=== PATIENT | male | born 2000 | race Caucasian/White ===

== ENCOUNTER 2021-09-10 12:48 | Inpatient (IN) ==
[2021-09-10] MEDS ORDERED: ONDANSETRON INJ 2 MG/ML 2 ML VIAL IV STA (14:02)
[2021-09-10] MEDS ORDERED: SODIUM CHLORIDE 0.9% 1000ML 1,000 ML IV ONE ×2 (14:02→14:53)
[2021-09-10] MEDS ORDERED: MoRPHine SULFATE 4 MG/ML 1 ML CARP\\VIAL IV STA (14:02)
--- NOTE | 2021-09-10 14:06 | Emergency Department Note ---
Impression & Plan Acute pancreatitis, Metabolic acidosis, Acute hyponatremia ED Provider Note NAME: ANN MARTINEZ AGE: 21 SEX: M : 2000 ARRIVES VIA: Walk-In INFORMANT: Patient, ED PROVIDER(S): Zaki Porter DO CHIEF COMPLAINT: Abdominal pain HPI: The patient is a 21-year-old male who presented to emergency department for an evaluation of abdominal pain. He has a history of pancreatitis from elevated triglycerides. He states he recently ran out of his medications and his primary doctor will not refill these medications until he seen in the office. He is not been taking his antihypertensive or his cholesterol medication but he has been taking his insulin. He denies having any fever. He denies having any hematemesis. He states pain is moderate. He does not drink alcohol. The patient has not been seen by his primary care physician recently for the symptoms. The patient states the pain is worsened with eating. ROS: See above HPI for pertinent positives & negatives. A total of 10 systems reviewed and were otherwise negative. PAST MEDICAL HISTORY: See Below PAST SURGICAL HISTORY: See Below FAMILY HISTORY: See Below SOCIAL HISTORY: See Below HOME MEDICATIONS: See Below ALLERGIES: See Below VITALS: See Below PHYSICAL EXAMINATION: GENERAL: Patient is awake alert in no acute distress patient is resting comfortably and showing no signs of anxiety EYES: The conjunctivae are clear. The pupils are round and reactive. EARS, NOSE, MOUTH AND THROAT: The nose is without any evidence of any deformity. NECK: The neck is nontender and supple. RESPIRATORY: Normal respiratory effort is noted there is no evidence of wheezing rhonchi or rales CARDIOVASCULAR: Regular rate and rhythm noted there no murmurs rubs or gallops normal S1 normal S2. GASTROINTESTINAL: The abdomen is soft and nondistended. There is epigastric tenderness to palpation but no guarding rigidity. BACK: No midline tenderness or or step-off noted range of motion in flexion extension as well as rotation no signs of muscle spasm noted MUSCULOSKELETAL/EXTREMITIES: There is no evidence of gross deformity full range of motion is noted in the hips and shoulders. SKIN: There is no obvious evidence of any rash. There are no petechiae, pallor or cyanosis noted. NEUROLOGIC: Patient is awake alert and oriented x3. MEDICAL DECISION MAKING: The patient is a 21-year-old male who presented to emergency department for an evaluation of abdominal pain. The patient has a history of pancreatitis. He states that this felt similar to his previous episodes of pancreatitis. The patient was treated with IV fluids and IV pain medication in the emergency department. He was reevaluated multiple times. I discussed the patient's laboratory and radiographic studies with him. At this time he has no primary care physician and has not been able to take his medications properly. His lipase was elevated compared to baseline. The patient was also found to have significant abnormalities on his basic metabolic panel including a low bicarb. For this reason I discussed this case with the on-call [facility] hospitalist. I am concerned that patient may be in early DKA and given that he has no primary care physician for follow-up he may not do well. Triage Nursing notes reviewed. Prior medical records reviewed Vital Signs: reviewed and remarkable for elevated blood pressure. Differential diagnosis: Etiologies such as appendicitis, diverticulitis, obstruction, inflammatory bowel disease, renal colic, PUD, biliary pathology, pancreatitis, mesenteric ischemia, aortic pathology, infections, genitourinary, UTI, perforated viscus, as well as others were entertained. ER treatment provided: See below Diagnostics interpreted by me: ECG: none Cardiac Monitoring: An order was placed for continuous cardiac monitoring. The monitor shows a rate of 83 bpm with sinus rhythm. Laboratory studies: As stated above and show below. Imaging studies: See below Consultation(s): Dr. Crowley was notified about the patient. They will evaluate the patient in the emergency department. Past Med/Surg History Medical History Dyslipidemia HTN (hypertension) Hypertriglyceridemia Obesity Uncontrolled type 2 diabetes mellitus Social History Smoking Status: Former smoker Tobacco Type: Cigarettes Feels Safe at Home: Yes Allergies Allergies Allergy/AdvReac Type Severity Reaction Status Date / Time erythromycin base Allergy Unknown HAPPENED Verified 09/10/21 15:16 A CHILD liraglutide [From Victoza] Allergy Unknown SEE COMMENT Verified 09/10/21 15:16 Home Meds Home Medications Medication Instructions Recorded Confirmed atorvastatin 40 mg tablet 40 mg PO HS #30 tab 04/23/19 09/10/21 blood sugar diagnostic (OneTouch #10 ea 04/23/19 04/23/19 Verio test strips) cholecalciferol (vitamin D3) 25 1,000 units PO DAILY 04/23/19 09/10/21 mcg (1,000 unit) capsule cyanocobalamin (vitamin B-12) 1,000 mcg PO DAILY 04/23/19 09/10/21 1,000 mcg capsule fenofibrate nanocrystallized 145 145 mg PO HS #30 tab 04/23/19 09/10/21 mg tablet insulin glargine 100 unit/mL (3 15 units SQ BID 04/23/19 09/10/21 mL) subcutaneous pen (Lantus Solostar U-100 Insulin) lancets 33 gauge (OneTouch Delica #100 ea 04/23/19 04/23/19 Lancets) lisinopril 10 mg tablet 10 mg PO DAILY #30 tab 04/23/19 09/10/21 metformin 1,000 mg tablet 1,000 mg PO BID #60 tab 04/23/19 09/10/21 omega-3 fatty acids 1,000 mg 1,000 mg PO TID 09/10/21 09/10/21 capsule Results & Data (ED) Vital Signs Vital Signs - 24 hr 09/10/21 13:00 09/10/21 14:11 09/10/21 15:00 Temperature 36.5 C Temperature Source Temporal Artery Scan Pulse Rate 88 Pulse Rate [Finger] 87 82 Respiratory Rate 20 18 18 Blood Pressure 167/119 H Blood Pressure [Left Arm] 169/109 H 152/98 H Blood Pressure Mean 135 Blood Pressure Mean [Left Arm] 129 116 Pulse Oximetry 96 96 96 Oxygen Delivery Method Room Air Room Air Sepsis Recent Fever Within 48 Hours No Sepsis New/Unexplained Change in Mental Status N/A Sepsis Action Taken by Nursing No Action Required 09/10/21 17:00 Temperature Temperature Source Pulse Rate Pulse Rate [Finger] 83 Respiratory Rate 18 Blood Pressure Blood Pressure [Left Arm] 163/109 H Blood Pressure Mean Blood Pressure Mean [Left Arm] 127 Pulse Oximetry 96 Oxygen Delivery Method Room Air Sepsis Recent Fever Within 48 Hours Sepsis New/Unexplained Change in Mental Status Sepsis Action Taken by Jail Medications Current Medication List: was personally reviewed by me Laboratory Data Attestation: I reviewed the patient's lab results. Result diagrams: 09/10/21 13:30 09/10/21 13:30 Lab Results 09/10/21 09/10/21 09/10/21 Range/Units 13:26 13:30 13:30 WBC 11.65 H (4.8-10.8) K/uL RBC 4.80 (4.7-6.1) M/uL Hgb 13.7 L (14.0-18.0) g/dL Hct 40.7 L (42-52) % MCV 83.8 (80-100) fL MCH 29.6 (25-34) pg MCHC 35.3 (32-36) g/dL RDW Std Deviation 43.0 (36.4-46.3) fL RDW Coeff of Yvon 13.8 (11.5-14.5) % Plt Count 293 (130-400) K/uL MPV 10.6 H (7.4-10.4) fL Immature Gran % (Auto) 0.4 % Neut % (Auto) 64.7 % Lymph % (Auto) 13.7 % [place] % (Auto) 18.9 % Eos % (Auto) 2.0 % Baso % (Auto) 0.3 % Neut # (Auto) 7.54 H (1.4-6.5) K/uL Lymph # (Auto) 1.60 (1.2-3.4) K/uL [place] # (Auto) 2.20 H (0.11-0.59) K/uL Eos # (Auto) 0.23 (0-0.5) K/uL Baso # (Auto) 0.03 (0-0.2) K/uL Immature Gran # (Auto) 0.05 H (0.00-0.02) K/uL RBC Morphology Unremarkable VBG pH (7.36-7.41) VBG pCO2 (38-50) mmHg VBG pO2 mmHg VBG HCO3 mmol/L VBG O2 Saturation % VBG Base Excess mEq/L Barometric Pressure mm/Hg Sodium 123 L (136-145) mmol/L Potassium 3.6 (3.5-5.1) mmol/L Chloride 89 L (98-107) mmol/L Carbon Dioxide 18 L (21-32) mmol/L Anion Gap 16 H (3-11) BUN 12 (6-23) mg/dl Creatinine 0.71 (0.6-1.4) mg/dl Est Cr Clr Drug Dosing 244.3 ml/min Est GFR ( Amer) > 150.0 ml/min Est GFR (Non-Af Amer) 133.2 ml/min BUN/Creatinine Ratio 16.9 (10-20) Glucose 225 H (70-99(Fasting)) mg/dl Calcium 10.4 H (8.5-10.1) mg/dl Total Bilirubin 0.6 (0.2-1.0) mg/dl AST 27 (13-39) U/L ALT 30 (7-52) U/L Alkaline Phosphatase 69 (34-104) U/L Lactate Dehydrogenase (86-244) U/L Total Protein 9.0 H (6.0-8.3) gm/dl Albumin 4.9 (3.4-5.0) gm/dl Globulin 4.1 H (2.5-4.0) gm/dl Albumin/Globulin Ratio 1.2 (0.9-2) Lipase 114 H (11-82) U/L Urine Color Yellow Urine Appearance Cloudy A (Clear) Urine pH 5.0 (4.5-7.5) Ur Specific [place] 1.035 H (1.000-1.030) Urine Protein 3+ H (Negative) Urine Glucose (UA) 3+ H (Negative) Urine Ketones Trace H (Negative) Urine Blood Trace H (Negative) Urine Nitrite Negative (Negative) Urine Bilirubin Negative (Negative) Urine Urobilinogen Negative (Negative) Ur Leukocyte Esterase Negative (Negative) Urine WBC (Auto) >30 H (0-5) /hpf Urine RBC (Auto) 0-4 (0-4) /hpf U Hyaline Cast (Auto) >30 H (0-5) /lpf U Epithel Cells (Auto) >30 H (0-5) /lpf Urine Bacteria (Auto) Negative (Negative) Ur Renal Epithelial Cell Not Reportable Granular Casts 1-5 H (0) /lpf SARS-CoV-2, RNA, NAAT (NEGATIVE) 09/10/21 09/10/21 09/10/21 Range/Units 13:30 15:17 17:00 WBC (4.8-10.8) K/uL RBC (4.7-6.1) M/uL Hgb (14.0-18.0) g/dL Hct (42-52) % MCV (80-100) fL MCH (25-34) pg MCHC (32-36) g/dL RDW Std Deviation (36.4-46.3) fL RDW Coeff of Yvon (11.5-14.5) % Plt Count (130-400) K/uL MPV (7.4-10.4) fL Immature Gran % (Auto) % Neut % (Auto) % Lymph % (Auto) % [place] % (Auto) % Eos % (Auto) % Baso % (Auto) % Neut # (Auto) (1.4-6.5) K/uL Lymph # (Auto) (1.2-3.4) K/uL [place] # (Auto) (0.11-0.59) K/uL Eos # (Auto) (0-0.5) K/uL Baso # (Auto) (0-0.2) K/uL Immature Gran # (Auto) (0.00-0.02) K/uL RBC Morphology VBG pH 7.36 (7.36-7.41) VBG pCO2 46 (38-50) mmHg VBG pO2 38 mmHg VBG HCO3 25 mmol/L VBG O2 Saturation 72.6 % VBG Base Excess -0.4 mEq/L Barometric Pressure 730.6 mm/Hg Sodium (136-145) mmol/L Potassium (3.5-5.1) mmol/L Chloride (98-107) mmol/L Carbon Dioxide (21-32) mmol/L Anion Gap (3-11) BUN (6-23) mg/dl Creatinine (0.6-1.4) mg/dl Est Cr Clr Drug Dosing ml/min Est GFR ( Amer) ml/min Est GFR (Non-Af Amer) ml/min BUN/Creatinine Ratio (10-20) Glucose (70-99(Fasting)) mg/dl Calcium (8.5-10.1) mg/dl Total Bilirubin (0.2-1.0) mg/dl AST (13-39) U/L ALT (7-52) U/L Alkaline Phosphatase (34-104) U/L Lactate Dehydrogenase 124 (86-244) U/L Total Protein (6.0-8.3) gm/dl Albumin (3.4-5.0) gm/dl Globulin (2.5-4.0) gm/dl Albumin/Globulin Ratio (0.9-2) Lipase (11-82) U/L Urine Color Urine Appearance (Clear) Urine pH (4.5-7.5) Ur Specific [place] (1.000-1.030) Urine Protein (Negative) Urine Glucose (UA) (Negative) Urine Ketones (Negative) Urine Blood (Negative) Urine Nitrite (Negative) Urine Bilirubin (Negative) Urine Urobilinogen (Negative) Ur Leukocyte Esterase (Negative) Urine WBC (Auto) (0-5) /hpf Urine RBC (Auto) (0-4) /hpf U Hyaline Cast (Auto) (0-5) /lpf U Epithel Cells (Auto) (0-5) /lpf Urine Bacteria (Auto) (Negative) Ur Renal Epithelial Cell Granular Casts (0) /lpf SARS-CoV-2, RNA, NAAT NEGATIVE (NEGATIVE) Administered Medications Discontinued Medications Sodium Chloride (Nss 1000ml) 1,000 mls @ 999 mls/hr IV .Q1H1M ONE Stop: 09/10/21 15:02 Last Infusion: 09/10/21 15:05 Dose: 0 mls/hr Documented by: [id number] Admin: 09/10/21 14:09 Dose: 999 mls/hr Documented by: [id number] Sodium Chloride (Nss 1000ml) 1,000 mls @ 999 mls/hr IV .Q1H1M ONE Stop: 09/10/21 15:53 Last Infusion: 09/10/21 16:54 Dose: 0 mls/hr Documented by: [id number] Admin: 09/10/21 15:02 Dose: 999 mls/hr Documented by: [id number] Famotidine (Pepcid 20mg Iv Push) 20 mg in 5 mls @ 2.5 mls/min IV NOW STA Stop: 09/10/21 16:52 Last Admin: 09/10/21 17:12 Dose: 2.5 mls/min Documented by: [id number] Ioversol (Optiray 320 100ml) 95 ml IV ONCE ONE Stop: 09/10/21 16:02 Last Admin: 09/10/21 16:05 Dose: 95 ml Documented by: [id number] Morphine Sulfate (Morphine Sulfate 4 Mg/Ml 1 Ml Carp\Vial) 4 mg IV NOW STA Stop: 09/10/21 14:03 Last Admin: 09/10/21 14:09 Dose: 4 mg Documented by: [id number] Ondansetron HCl (Ondansetron Inj 2 Mg/Ml 2 Ml Vial) 4 mg IV NOW STA Stop: 09/10/21 14:03 Last Admin: 09/10/21 14:09 Dose: 4 mg Documented by: [id number] Imaging Data Radiologist's Impression: Abdomen/Pelvis CT 09/10/21 15:38 CT OF THE ABDOMEN AND PELVIS WITH CONTRAST CLINICAL HISTORY: Upper abdominal pain. COMPARISON STUDY: None. TECHNIQUE: Following IV administration of 94 mL of Optiray, axial images of the abdomen and pelvis were obtained from the lung bases to the proximal femurs. Images were reviewed in the axial, sagittal, and coronal planes. IV contrast was administered without complication. Automated exposure control was utilized for the study. A dose lowering technique was utilized adhering to the principles of ALARA. CT DOSE: 1306.89 mGy.cm FINDINGS: Lung bases are unremarkable. No pneumatosis, free air or portal venous gas is present. Bilateral gynecomastia is noted. The liver is enlarged, measuring 27 cm in craniocaudal dimension. Hepatic steatosis is present. There is mild splenomegaly. No hepatic lesions are present. The adrenal glands and right kidney are normal. Note is made of a 6 mm left renal calculus. There are no ureteral calculi and there is no hydronephrosis. There is mild peripancreatic infiltration which extends into the mesentery. There is no evidence for stewart creatic necrosis. No peripancreatic fluid collection is present. There is no pericholecystic infiltration. The appendix is normal. Caliber and wall thickness of small and large bowel are normal. Colonic diverticulosis is noted without evidence for acute diverticulitis. No acute fracture or suspicious lesion is identified within the visualized skeletal structures. IMPRESSION: 1. Peripancreatic stranding suggestive of acute pancreatitis. No evidence for pancreatic necrosis. No peripancreatic fluid collections. 2. Hepatic steatosis and hepatomegaly. Mild splenomegaly. 3. 6 mm left renal calculus. No ureteral calculi. No hydronephrosis. ACT 112: Negative or not required by law. Electronically signed by: Harvinder Rodrigues M.D. 09/10/2021 4:45 PM Discharge Plan Visit Data Chief Complaint: Abdominal Pain Stated Complaint: CHEST PAIN, UPPER ABD PAIN ED Provider: Zaki Porter Discharge Problem: Acute pancreatitis, Metabolic acidosis, Acute hyponatremia Patient Disposition: Being Evaluated by Hospitalist Forms Stand Alone Forms: My [facility] Prescriptions Prescriptions: No Action atorvastatin 40 mg tablet 40 mg PO HS Qty: 30 RF: 0 fenofibrate nanocrystallized 145 mg tablet 145 mg PO HS Qty: 30 RF: 0 Lantus Solostar U-100 Insulin 100 unit/mL (3 mL) insulin pen 15 units SQ BID RF: 0 lisinopril 10 mg tablet 10 mg PO DAILY Qty: 30 RF: 0 metformin 1,000 mg tablet 1,000 mg PO BID Qty: 60 RF: 0 (DME) lancets [OneTouch Delica Lancets] 33 gauge misc See Dose Instructions .ROUTE .MEDSUPPLY Qty: 100 RF: 0 (DME) OneTouch Verio test strips strip See Dose Instructions .ROUTE .MEDSUPPLY Qty: 10 RF: 0 cyanocobalamin (vitamin B-12) 1,000 mcg capsule 1,000 mcg PO DAILY RF: 0 cholecalciferol (vitamin D3) 1,000 unit capsule 1,000 units PO DAILY RF: 0 omega-3 fatty acids 1,000 mg Capsule 1,000 mg PO TID RF: 0 Referrals Referrals: Unknown,Unknown [] -
[2021-09-10 14:30] LABS: Hematocrit (blood only) 40.7 % (42-52); Hemoglobin 13.7 g/dL (14.0-18.0); Mean Corpuscular Hemoglobin 29.6 pg (25-34); Mean Corpuscular Hgb Conc 35.3 g/dL (32-36); Mean Corpuscular Volume 83.8 fL (80-100); Mean Platelet Volume 10.6 fL (7.4-10.4); Platelet Count 293 K/uL (130-400); RDW Coefficient of Variation 13.8 % (11.5-14.5); White Blood Count 11.65 K/uL (4.8-10.8)
[2021-09-10 14:34] LABS: Basophils # (auto) 0.03 K/uL (0-0.2); Basophils % (auto) 0.3 %; Eosinophils # (auto) 0.23 K/uL (0-0.5); Immature Granulocytes # (auto) 0.05 K/uL (0.00-0.02); Immature Granulocytes % (auto) 0.4 %; Lymphocytes % (auto) 13.7 %; Monocytes % (auto) 18.9 %; Neutrophils # (auto) 7.54 K/uL (1.4-6.5); Neutrophils % (auto) 64.7 %; RBC Morphology Unremarkable
[2021-09-10 14:42] LABS: Anion Gap 16 (3-11); Blood Urea Nitrogen 12 mg/dl (6-23); Carbon Dioxide 18 mmol/L (21-32); Chloride 89 mmol/L (98-107); Potassium 3.6 mmol/L (3.5-5.1); Sodium 123 mmol/L (136-145)
[2021-09-10 15:03] LABS: Appearance Urine Cloudy (Clear); Bacteria Urine Automated Negative (Negative); Bilirubin Urine Negative (Negative); Blood Urine Trace (Negative); Color Urine Yellow; Epithelial Cell Urine Auto >30 /lpf (0-5); Glucose Urine UA 3+ (Negative); Ketones Urine Trace (Negative); Leukocyte Esterase Urine Negative (Negative); Nitrite Urine Negative (Negative); Protein Urine 3+ (Negative); RBC Urine Automated 0-4 /hpf (0-4); Specific Gravity Urine 1.035 (1.000-1.030); Urobilinogen Urine Negative (Negative); WBC Urine Automated >30 /hpf (0-5)
[2021-09-10 15:04] LABS: Cast Urine Automated >30 /lpf (0-5)
[2021-09-10 15:19] LABS: Alanine Aminotransferase 30 U/L (7-52); Albumin Globulin Ratio 1.2 (0.9-2); Albumin Level 4.9 gm/dl (3.4-5.0); Alkaline Phosphatase 69 U/L (34-104); BUN Creatinine Ratio 16.9 (10-20); Bilirubin,Total 0.6 mg/dl (0.2-1.0); Calcium 10.4 mg/dl (8.5-10.1); Creatinine Clr Calc Pharmacy 244.3 ml/min; Est GFR (African American) > 150.0 ml/min; Est GFR (Non-African American) 133.2 ml/min; Globulin 4.1 gm/dl (2.5-4.0); Glucose 225 mg/dl (70-99(Fasting)); Lipase 114 U/L (11-82)
[2021-09-10 15:27] LABS: Aspartate Aminotransferase 27 U/L (13-39)
[2021-09-10 15:29] LABS: Base Excess VBG -0.4 mEq/L; Oxygen Saturation VBG 72.6 %; pH VBG 7.36 (7.36-7.41)
[2021-09-10] MEDS ORDERED: OPTIRAY 320 100ml IV ONE (16:01)
--- NOTE | 2021-09-10 16:47 | CT Scan Report ---
CT OF THE ABDOMEN AND PELVIS WITH CONTRAST CLINICAL HISTORY: Upper abdominal pain. COMPARISON STUDY: None. TECHNIQUE: Following IV administration of 94 mL of Optiray, axial images of the abdomen and pelvis we re obtained from the lung bases to the proximal femurs. Images were reviewed in the axial, sagittal, and coronal planes. IV contrast was administered without complication. Automated exposure control wa s utilized for the study. A dose lowering technique was utilized adhering to the principles of ALARA . CT DOSE: 1306.89 mGy.cm FINDINGS: Lung bases are unremarkable. No pneumatosis, free air or portal venous gas is present. Bila teral gynecomastia is noted. The liver is enlarged, measuring 27 cm in craniocaudal dimension. Hepati c steatosis is present. There is mild splenomegaly. No hepatic lesions are present. The adrenal gland s and right kidney are normal. Note is made of a 6 mm left renal calculus. There are no ureteral calc rickey and there is no hydronephrosis. There is mild peripancreatic infiltration which extends into the mesentery. There is no evidence for pancreatic necrosis. No peripancreatic fluid collection is presen t. There is no pericholecystic infiltration. The appendix is normal. Caliber and wall thickness of sm all and large bowel are normal. Colonic diverticulosis is noted without evidence for acute diverticul itis. No acute fracture or suspicious lesion is identified within the visualized skeletal structures. IMPRESSION: 1. Peripancreatic stranding suggestive of acute pancreatitis. No evidence for pancreatic necrosis. No peripancreatic fluid collections. 2. Hepatic steatosis and hepatomegaly. Mild splenomegaly. 3. 6 mm left renal calculus. No ureteral calculi. No hydronephrosis. ACT 112: Negative or not required by law. Electronically signed by: Harvinder Rodrigues M.D. 09/10/2021 4:45 PM
[2021-09-10] MEDS ORDERED: FAMOTIDINE 20MG IV PUSH 20 MG/5 ML SYR IV STA (16:51)
--- NOTE | 2021-09-10 17:12 | History & Physical Report ---
Date of Service September 10, 2021 Assessment & Plan (1) Pancreatitis: Plan: -Triglycerides 7898. -Patient has a history of hypertriglyceridemia pancreatitis. Denies alcohol use, abdominal trauma, recent changes to medications or addition of supplements. CT showed no gallstones. Patient has been without his cholesterol medication for about 3 weeks now. History of familial hypertriglyceridemia . Lipase elevated at 114. CT of the abdomen revealed peripancreatic stranding suggestive of acute pancreatitis. No evidence of pancreatitis necrosis. No peripancreatic fluid collections. -Will start insulin drip 0.1 mg/kg/hour, (= 13.4 units/h). -Presenting K+ 3.6, patient received 40 mEq PO KCl in anticipation of K depletion 2/2 insulin drip, will continue to replace as needed. Following BMPs every 4. -D5 w/ LR at 150 cc/hour. -Low-fat/heart healthy clear liquids as tolerated by patient. -Check triglycerides Q12h, BMP Q4h. -Lactate unable to be obtained currently due to lipemia. Patient is hypertensive, otherwise vital signs stable, within normal limits. (2) Hypertriglyceridemia: Plan: -See above. -Continue atorvastatin 40 mg and fenofibrate 145 mg daily. (3) Uncontrolled type 2 diabetes mellitus: Plan: -Glucose elevated today at 225. -On Metformin at home. will hold during hospitalization. -Currently on insulin drip due to hypertriglyceridemia pancreatitis, also receiving D5 with LR at 150 cc/hr. -Check sugars every hour. -HbA1c in a.m. (4) Hyponatremia: Plan: -Na+ 123 in the setting of hypertriglyceridemia and hyperglycemia. This is likely pseudohyponatremia. No symptoms of hyponatremia, dizziness, weakness, confusion. -Uosm 309. -Following BMP every 4. (5) HTN (hypertension): Plan: -Blood pressure elevated at 163/109, likely due to pain as well as uncontrolled hypertension. -No evidence of KIM, continue lisinopril 10 mg p.o. daily. (6) DVT prophylaxis: Plan: -SCDs ordered. -Lovenox SQ. History of Present Illness Chief Complaint: abdominal pain x2 days Primary Care Provider: NO PCP Patient is a 21-year-old male with a past medical history of poorly controlled type 2 diabetes, hypertension, hypertriglyceridemia, hospitalized several times with pancreatitis, and obesity who presents with abdominal pain. Patient states yesterday morning, he woke up feeling generally fatigued and developed epigastric abdominal pain with radiation up to his chest. He tried managing at home with 800 mg of ibuprofen which he states took away the pain somewhat for about 8 hours, however it came back and he was unable to control it. Denies f ever/chills, palpitations, shortness of breath, cough, headache, nausea, vomiting, diarrhea, constipation, melena, hematochezia, urinary changes. He states he is very good at staying hydrated, he has been tolerating p.o. intake both food and liquids at home very well. Patient states he was previously hospitalized beginning of the month in [place] for hypertriglyceridemia induced pancreatitis. He was discharged and encouraged to follow-up with PCP, he had scheduled an appointment for this past Saturday, however patient missed this appointment. He has been taking insulin and BP meds as scheduled but has been without his cholesterol medication for about 3 weeks. 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 He states he has been trying to eat healthier, avoid sodium and fatty foods. Attempting to increase his protein intake. Allergies Allergy/AdvReac Type Severity Reaction Status Date / Time erythromycin base Allergy Unknown HAPPENED Verified 09/10/21 15:16 A CHILD liraglutide [From Victoza] Allergy Unknown SEE COMMENT Verified 09/10/21 15:16 Home Medications Medication Instructions Recorded Confirmed Type atorvastatin 40 mg tablet 40 mg PO HS #30 tab 04/23/19 09/10/21 [facility]19 04/23/19 History Verio test strips) cholecalciferol (vitamin D3) 25 1,000 units PO DAILY 04/23/19 09/10/21 History mcg (1,000 unit) capsule cyanocobalamin (vitamin B-12) 1,000 mcg PO DAILY 04/23/19 09/10/21 History 1,000 mcg capsule fenofibrate nanocrystallized 145 145 mg PO HS #30 tab 04/23/19 09/10/21 History mg tablet insulin glargine 100 unit/mL (3 15 units SQ BID 04/23/19 09/10/21 History mL) subcutaneous pen (Lantus Solostar U-100 Insulin) lancets 33 [facility] 04/23/19 04/23/19 History Lancets) lisinopril 10 mg tablet 10 mg PO DAILY #30 tab 04/23/19 09/10/21 History metformin 1,000 mg tablet 1,000 mg PO BID #60 tab 04/23/19 09/10/21 History omega-3 fatty acids 1,000 mg 1,000 mg PO TID 09/10/21 09/10/21 History capsule blood sugar diagnostic (OneTouch #100 ea 09/11/21 Rx Verio test strips) lancets 33 gauge (OneTouch Delica #100 ea 09/11/21 Rx Lancets) pen needle, diabetic 32 gauge x #100 ea 09/11/21 Rx 5/32" Past Med/Surg History Medical History Dyslipidemia HTN (hypertension) Hypertriglyceridemia Obesity Uncontrolled type 2 diabetes mellitus Social History Smoking Status: Former smoker Tobacco Type: Cigarettes Second Hand Exposure: No; Do You Dip or Chew Tobacco: No; Tobacco Cessation Education Requested by Patient: No Hx Alcohol Use: No Hx Substance Use: No Preferred Language: German Communication Ability: Effective Vamp Stitcher Required: No Beliefs That Will Affect Care: None Current Living Situation: Spouse and Family Other Information That Helps Us Care for You: No Feels Safe at Home: Yes Safety Concerns: Feels Safe At This Time Assistive Devices: None Review of Systems Review of Systems: Constitutional: Reports generalized weakness for 1 day; no fever, sweats or chills Eyes: No diplopia, no worsening or blurred vision ENT: normal hearing, no trouble swallowing Respiratory: No cough, sputum, dyspnea at rest or on exertion Cardiovascular: No chest pain, tightness or palpitations Abdomen: Epigastric abdominal pain with radiation to his chest; no nausea, vomiting, diarrhea or constipation Musculoskeletal: No joint pain, calf pain, swelling Neurologic: No weakness, numbness/tingling, or balance problems Psychiatric: No anxiety or depression Skin: No rash or itch Physical Exam Physical Exam: General: awake, alert, no apparent distress Head: Normocephalic, atraumatic ENT: PERRL, EOMI, no pharyngeal exudate, mucous membranes moist Chest: Clear to auscultation, on room air, no adventitious breath sounds Cardiac: Regular rate and rhythm, no murmur, no JVD, normal peripheral pulses, good capillary refill Abdominal: NABS x 4 quadrants, soft, nontender to palpation, no rebound, guarding or tenderness; negative Sky sign, negative Ramsey Schumacher sign Extremities: Normal inspection, no peripheral edema or erythema, calfs nontender to palpation Psych: Normal mood and affect Neuro: AAO x 3, strength intact bilaterally and rated 5/5, no motor deficits, speech is clear, no peripheral sensory deficits Skin: no rash or erythema Results & Data Results & Data ([facility]) Vital Signs (Past 12 Hours) Vital Signs Temp Pulse Pulse Resp BP BP Pulse Ox 09/10/21 15:00 82 18 152/98 H 96 09/10/21 14:11 87 18 169/109 H 96 09/10/21 13:00 36.5 C 88 20 167/119 H 96 Laboratory Results Abnormal lab results 09/10/21 09/10/21 09/10/21 Range/Units 13:26 13:30 13:30 WBC 11.65 H (4.8-10.8) K/uL Hgb 13.7 L (14.0-18.0) g/dL Hct 40.7 L (42-52) % MPV 10.6 H (7.4-10.4) fL Neut # (Auto) 7.54 H (1.4-6.5) K/uL [place]ard # (Auto) 2.20 H (0.11-0.59) K/uL Immature Gran # (Auto) 0.05 H (0.00-0.02) K/uL Sodium 123 L (136-145) mmol/L Chloride 89 L (98-107) mmol/L Carbon Dioxide 18 L (21-32) mmol/L Anion Gap 16 H (3-11) Glucose 225 H (70-99(Fasting)) mg/dl Calcium 10.4 H (8.5-10.1) mg/dl Total Protein 9.0 H (6.0-8.3) gm/dl Globulin 4.1 H (2.5-4.0) gm/dl Lipase 114 H (11-82) U/L Urine Appearance Cloudy A (Clear) Ur Specific [place] 1.035 H (1.000-1.030) Urine Protein 3+ H (Negative) Urine Glucose (UA) 3+ H (Negative) Urine Ketones Trace H (Negative) Urine Blood Trace H (Negative) Urine WBC (Auto) >30 H (0-5) /hpf U Hyaline Cast (Auto) >30 H (0-5) /lpf U Epithel Cells (Auto) >30 H (0-5) /lpf Granular Casts 1-5 H (0) /lpf Diagnostic Findings Abdomen/Pelvis CT 09/10/21 15:38 CT OF THE ABDOMEN AND PELVIS WITH CONTRAST CLINICAL HISTORY: Upper abdominal pain. COMPARISON STUDY: None. TECHNIQUE: Following IV administration of 94 mL of Optiray, axial images of the abdomen and pelvis were obtained from the lung bases to the proximal femurs. Images were reviewed in the axial, sagittal, and coronal planes. IV contrast was administered without complication. Automated exposure control was utilized for the study. A dose lowering technique was utilized adhering to the principles of ALARA. CT DOSE: 1306.89 mGy.cm FINDINGS: Lung bases are unremarkable. No pneumatosis, free air or portal venous gas is present. Bilateral gynecomastia is noted. The liver is enlarged, measuring 27 cm in craniocaudal dimension. Hepatic steatosis is present. There is mild splenomegaly. No hepatic lesions are present. The adrenal glands and right kidney are normal. Note is made of a 6 mm left renal calculus. There are no ureteral calculi and there is no hydronephrosis. There is mild peripancreatic infiltration which extends into the mesentery. There is no evidence for pancreatic necrosis. No peripancreatic fluid collection is present. There is no pericholecystic infiltration. The appendix is normal. Caliber and wall thickness of small and large bowel are normal. Colonic diverticulosis is noted without e vidence for acute diverticulitis. No acute fracture or suspicious lesion is identified within the visualized skeletal structures. IMPRESSION: 1. Peripancreatic stranding suggestive of acute pancreatitis. No evidence for pancreatic necrosis. No peripancreatic fluid collections. 2. Hepatic steatosis and hepatomegaly. Mild splenomegaly. 3. 6 mm left renal calculus. No ureteral calculi. No hydronephrosis. Medications Administered Home Medications Medication Instructions Recorded Confirmed Type atorvastatin 40 mg tablet 40 mg PO HS #30 tab 04/23/19 09/10/21 History blood sugar diagnostic (OneTouch #10 ea 04/23/19 04/23/19 History Verio test strips) cholecalciferol (vitamin D3) 25 1,000 units PO DAILY 04/23/19 09/10/21 History mcg (1,000 unit) capsule cyanocobalamin (vitamin B-12) 1,000 mcg PO DAILY 04/23/19 09/10/21 History 1,000 mcg capsule fenofibrate nanocrystallized 145 145 mg PO HS #30 tab 04/23/19 09/10/21 History mg tablet insulin glargine 100 unit/mL (3 15 units SQ BID 04/23/19 09/10/21 History mL) subcutaneous pen (Lantus Solostar U-100 Insulin) lancets 33 gauge ([facility] Delica #100 ea 04/23/19 04/23/19 History Lancets) lisinopril 10 mg tablet 10 mg PO DAILY #30 tab 04/23/19 09/10/21 History metformin 1,000 mg tablet 1,000 mg PO BID #60 tab 04/23/19 09/10/21 History omega-3 fatty acids 1,000 mg 1,000 mg PO TID 09/10/21 09/10/21 History capsule Current Medications Lactated Ringer's (Lr) 1,000 mls @ 999 mls/hr IV .Q1H1M ONE Stop: 09/10/21 18:26 Last Admin: 09/10/21 17:30 Dose: 999 mls/hr Documented by: Code Status & VTE Plan Code Status full code Supervising Physician Co-Signing Physician Notes I personally saw and examined the patient. I verified all barrera points and agree with Jaz Owens PA-C with the following exceptions and/or additions: 21 year old male with significant history of recurrent hypertriglyceridemia pancreatitis off his atorvastatin and fenofibrate for the past month admission for epigastric pain with lipase 114 U/L however significant CT imaging findings of pancreatitis. Current severity of pain 6/10, improved on pain medication given in the ER. O/E Well-appearing, alert and orientated x3, epigastric pain without rebound or guarding, bowel sounds normal. No CVA tenderness. A/P Acute pancreatitis - etiology = triglycerides 7898 mg/dL. Initial aggressive rehydration with 3L bolus of IV fluids. Advance diet as pain/nausea allow. Given he is able to tolerate oral intake at this time we will continue his atorvastatin and fenofibrate. Insulin 0.1 units/kg/h started. Maintain glucose levels 150-200 using D10W initially at rates of 75ml/hr. continue additional fluid resuscitation with LR @ 75 ml/hr. BMP every 6 hourly. Triglycerides every 12 hourly. Uncontrolled type 2 diabetes - taking approximately 40 units total per day. Will be getting total of 312 units/day while on insulin drip. Consult processing spec. HbA1c with a.m. labs. PG Care Time/CCT Total # of Minutes Spent Total Time Spent with Patient: Total time spent is greater than 50% in coordination of care (as documented) at patient's floor/unit and/or counseling patient: Coding Level of Care Code 66112 Initial Inpt Care Lvl 3 Diagnoses Uncontrolled type 2 diabetes mellitus E11.65 Glycemic state: with hyperglycemia HTN (hypertension) I10 Hypertension type: unspecified Hypertriglyceridemia E78.1 Pancreatitis K85.80 Acute pancreatitis complication: no infection or necrosis Chronicity: acute Pancreatitis type: other Hyponatremia E87.1 DVT prophylaxis Z29.9 (1) Uncontrolled type 2 diabetes mellitus Glycemic state: with hyperglycemia Qualified Code(s): E11.65 - Type 2 diabete s mellitus with hyperglycemia (2) Pancreatitis Acute pancreatitis complication: no infection or necrosis Chronicity: acute Pancreatitis type: other Qualified Code(s): K85.80 - Other acute pancreatitis without necrosis or infection (3) HTN (hypertension) Hypertension type: unspecified Qualified Code(s): I10 - Essential (primary) hypertension
[2021-09-10] MEDS ORDERED: LACTATED RINGER'S 1,000 ML IV ONE (17:26)
[2021-09-10] MEDS ORDERED: STAT IV STA (18:05)
[2021-09-10] MEDS ORDERED: POTASSIUM CHLORIDE CRTAB 20 MEQ TABCR PO STA (18:06)
[2021-09-10] MEDS ORDERED: D5W AND LACTATED RINGERS 1,000 ML IV SCH (18:15)
--- NOTE | 2021-09-10 18:26 | XRay Report ---
XR chest 1V portable CLINICAL HISTORY: assess for pleural effusions with pancreatitis COMPARISON STUDY: No previous studies for comparison. FINDINGS: Lung volumes are mildly diminished. There is no pneumothorax or pleural effusion. Cardiac s ilhouette is mildly enlarged, likely technical on this portable AP exam. No airspace opacities are pr esent. IMPRESSION: No acute cardiopulmonary findings. ACT 112: Negative or not required by law. Electronically signed by: Harvinder Rodrigues M.D. 09/10/2021 6:24 PM
[2021-09-10] MEDS ORDERED: HYDROmorphone INJ 1 MG/ML SYRINGE IV STA (18:37)
[2021-09-10] MEDS ORDERED: GLUCAGON FOR INJ 1 MG VIAL SQ PRN (19:04)
[2021-09-10] MEDS ORDERED: GLUCOSE 10 TABS/TUBE PO PRN (19:04)
[2021-09-10] MEDS ORDERED: DEXTROSE 50% 50 ML SYRINGE IV PRN (19:04)
[2021-09-10] MEDS ORDERED: GLUCOSE 40% GEL 15 GM TUBE PO PRN (19:04)
[2021-09-10] MEDS ORDERED: CARBOHYDRATES FOR HYPOGLYCEMIA PO PRN (19:04)
[2021-09-10 19:11] LABS: Anion Gap 13 (3-11); BUN Creatinine Ratio 16.1 (10-20); Blood Urea Nitrogen 9 mg/dl (6-23); Calcium 9.1 mg/dl (8.5-10.1); Carbon Dioxide 20 mmol/L (21-32); Chloride 104 mmol/L (98-107); Creatinine Clr Calc Pharmacy 309.8 ml/min; Est GFR (African American) > 150.0 ml/min; Est GFR (Non-African American) 146.8 ml/min; Glucose 175 mg/dl (70-99(Fasting)); Potassium 3.9 mmol/L (3.5-5.1); Sodium 137 mmol/L (136-145)
[2021-09-10] MEDS ORDERED: POLYETHYLENE (MIRALAX) 17 GM PACK PO PRN (19:18)
[2021-09-10] MEDS ORDERED: ACETAMINOPHEN 325 MG TAB PO PRN (19:18)
[2021-09-10] MEDS: POTASSIUM CHLORIDE / WTR 10 MEQ/100 ML PLCT IV SCH ×2 (19:38→22:15)
[2021-09-10] MEDS ORDERED: ENOXAPARIN INJ 40 MG/0.4 ML SYR SQ SCH (21:00)
[2021-09-10] MEDS ORDERED: FENOFIBRATE NANOCRYSTALLIZED 145 MG TABLET PO SCH (21:00)
[2021-09-10] MEDS ORDERED: ATORVASTATIN 40 MG TAB PO SCH (21:00)
[2021-09-10] MEDS: INSULIN REGULAR 250 UNITS in SODIUM CHLORIDE 0.9% 247.5 ML IV SCH (21:09)
[2021-09-10] MEDS: LACTATED RINGER'S 1,000 ML IV SCH (21:10)
[2021-09-10] MEDS: DEXTROSE 10% 1,000 ML IV SCH (21:10)
[2021-09-10] MEDS: HYDROmorphone INJ 1 MG/ML SYRINGE IV PRN (21:40)
[2021-09-10] MEDS: FENOFIBRATE NANOCRYSTALLIZED 145 MG TABLET PO SCH (22:17)
[2021-09-10] MEDS: ATORVASTATIN 40 MG TAB PO SCH (22:17)
[2021-09-10 23:48] LABS: Anion Gap 9 (3-11); BUN Creatinine Ratio 12.9 (10-20); Blood Urea Nitrogen 8 mg/dl (6-23); Calcium 8.9 mg/dl (8.5-10.1); Carbon Dioxide 24 mmol/L (21-32); Chloride 103 mmol/L (98-107); Creatinine Clr Calc Pharmacy 282.3 ml/min; Est GFR (African American) > 150.0 ml/min; Est GFR (Non-African American) 140.8 ml/min; Glucose 185 mg/dl (70-99(Fasting)); Potassium 3.9 mmol/L (3.5-5.1); Sodium 136 mmol/L (136-145)
[2021-09-11] MEDS: ONDANSETRON INJ 2 MG/ML 2 ML VIAL IV PRN ×2 (01:23→16:26)
[2021-09-11] MEDS: HYDROmorphone INJ 1 MG/ML SYRINGE IV PRN ×4 (01:23→20:10)
[2021-09-11 04:07] LABS: Anion Gap 10 (3-11); BUN Creatinine Ratio 11.6 (10-20); Blood Urea Nitrogen 8 mg/dl (6-23); Calcium 8.6 mg/dl (8.5-10.1); Carbon Dioxide 24 mmol/L (21-32); Chloride 101 mmol/L (98-107); Creatinine Clr Calc Pharmacy 253.7 ml/min; Est GFR (African American) > 150.0 ml/min; Est GFR (Non-African American) 134.8 ml/min; Glucose 200 mg/dl (70-99(Fasting)); Potassium 3.8 mmol/L (3.5-5.1); Sodium 135 mmol/L (136-145)
[2021-09-11] MEDS: POTASSIUM CHLORIDE / WTR 10 MEQ/100 ML PLCT IV SCH ×4 (06:22→11:16)
[2021-09-11 07:40] LABS: Estimated Average Glucose 283 mg/dl; Hemoglobin A1C 11.5 % (4.5-5.6)
[2021-09-11 07:44] LABS: Anion Gap 8 (3-11); BUN Creatinine Ratio 8.2 (10-20); Blood Urea Nitrogen 6 mg/dl (6-23); Calcium 8.8 mg/dl (8.5-10.1); Carbon Dioxide 27 mmol/L (21-32); Chloride 100 mmol/L (98-107); Creatinine Clr Calc Pharmacy 239.8 ml/min; Est GFR (African American) > 150.0 ml/min; Est GFR (Non-African American) 131.7 ml/min; Glucose 217 mg/dl (70-99(Fasting)); Sodium 135 mmol/L (136-145)
[2021-09-11] MEDS ORDERED: lisinopril 10 MG TAB PO SCH (09:00)
[2021-09-11] MEDS: LACTATED RINGER'S 1,000 ML IV SCH ×2 (11:17→23:08)
[2021-09-11] MEDS: DEXTROSE 10% 1,000 ML IV SCH ×2 (11:17→23:06)
[2021-09-11 12:51] LABS: Hemoglobin 13.7 g/dL (14.0-18.0); Mean Corpuscular Hemoglobin 29.4 pg (25-34); Mean Corpuscular Hgb Conc 35.1 g/dL (32-36); Mean Corpuscular Volume 83.7 fL (80-100); Mean Platelet Volume 10.3 fL (7.4-10.4); Platelet Count 245 K/uL (130-400); RDW Coefficient of Variation 13.9 % (11.5-14.5); RDW Standard Deviation 42.1 fL (36.4-46.3); Red Blood Count 4.66 M/uL (4.7-6.1); White Blood Count 15.27 K/uL (4.8-10.8)
[2021-09-11 12:53] LABS: ALC (manual) 1.86 K/uL (1.2-3.4); ANC (manual) 11.96 K/uL (1.4-6.5); Eosinophils # (manual) 0.26 K/uL (0-0.5); Eosinophils % (manual) 1.7 %; Lymphocytes # (manual) 1.86 K/uL (1.2-3.4); Lymphocytes % (manual) 12.2 %; Monocytes # (manual) 1.19 K/uL (0.11-0.59); Monocytes % (manual) 7.8 %; Neutrophils # (manual) 11.96 K/uL (1.4-6.5); Neutrophils % (manual) 78.3 %
[2021-09-11 12:59] LABS: Anion Gap 11 (3-11); BUN Creatinine Ratio 7.5 (10-20); Blood Urea Nitrogen 5 mg/dl (6-23); Calcium 8.6 mg/dl (8.5-10.1); Carbon Dioxide 22 mmol/L (21-32); Chloride 100 mmol/L (98-107); Creatinine Clr Calc Pharmacy 261.2 ml/min; Est GFR (African American) > 150.0 ml/min; Est GFR (Non-African American) 136.4 ml/min; Glucose 182 mg/dl (70-99(Fasting)); Potassium 3.9 mmol/L (3.5-5.1); Sodium 133 mmol/L (136-145)
[2021-09-11] MEDS: INSULIN REGULAR 250 UNITS in SODIUM CHLORIDE 0.9% 247.5 ML IV SCH (15:49)
[2021-09-11] MEDS ORDERED: POTASSIUM CHLORIDE CRTAB 20 MEQ TABCR PO STA ×2 (16:02→19:42)
--- NOTE | 2021-09-11 16:35 | Hospitalist Progress Note ---
Date of Service September 11, 2021 Assessment & Plan (1) Pancreatitis: Plan: Secondary to hypertriglyceridemia - Triglycerides 7898 on admission, improving with intravenous insulin -Patient has a history of hypertriglyceridemia pancreatitis. Denies alcohol use, abdominal trauma, recent changes to medications or addition of supplements. CT showed no gallstones. Patient has been without his cholesterol medication for about 3 weeks now. History of familial hypertriglyceridemia . Lipase elevated at 114. CT of the abdomen revealed peripancreatic stranding suggestive of acute pancreatitis. No evidence of pancreatitis necrosis. No peripancreatic fluid collections. -continue insulin drip 0.1 mg/kg/hour, (= 13.4 units/h). -Replace potassium as needed. -Continue LR @ 75ml/hr + D10W @ 75ml/hr - appears to be keeping glucose 150-200 with this rate. Will likely need to stop LR tomorrow as patient approximately 6L positive at this time. -Low-fat/heart healthy as tolerated by patient. -Check triglycerides Q12h, BMP Q6h. (2) Asymptomatic bacteriuria: Plan: Staph growing in urine. Suspect contamination as no symptoms from this but prudent to take blood cultures to make sure not bacteremic with hyperglycemia and increased WBC. No indication to start antibiotics at current time however if he was to spike a fever despite this possibly also being related to his pancre atitis would empirically treat for staph bacteremia. (3) Hypertriglyceridemia: Plan: -See above. -Continue atorvastatin 40 mg and fenofibrate 145 mg daily. (4) Uncontrolled type 2 diabetes mellitus: Plan: -Glucose elevated on admission 225. -On Metformin at home. will hold during hospitalization. -Currently on insulin drip due to hypertriglyceridemia pancreatitis. -BSG q2h. -HbA1c 11.5 (5) Hyponatremia: Plan: Resolved - suspect somewhat pseudohyponatremic secondary to hypertriglyceridemia (6) HTN (hypertension): Plan: Hold further lisinopril due to low normal BP - already had dose this morning Plan: VTE prophylaxis - SCDs, low risk given age despite higher risk condition with pancreatitis, he is mobile therefore will avoid Lovenox injections Diet - low fat, stop if worsening pain or nausea and will reduce back to clears Disposition - continued admission on PCU due to worsening inflammation as noted by increased WBC and tachycardia despite abdominal pain improving Admission and Anticipated Discharge Date Admission Date: September 10, 2021 Subjective Epigastric pain improved. Severity 4/10. Ok eating small amounts but pain returns if he eats too much. Appetite good. BM normal. No nausea or vomiting. No fever or chills. Review of Systems Review of Systems: All systems reviewed & are unremarkable except as noted in HPI & below Physical Exam Constitutional: well developed, well nourished and + obese; no acute distress Eyes: + anicteric sclerae; normal pupil size Neck: trachea midline, no thyromegaly Respiratory: normal respiratory effort, lungs clear to auscultation Cardiovascular: Rate/Rhythm: regular rhythm and + tachycardic Heart Sounds: no murmur Gastrointestinal (Abdomen): Percussion/Palpation: + abdomen tender (epigastric) and abdomen soft; no guarding and abdomen not rigid Skin: no rashes, warm and dry Neurologic: moves all extremities and awake; not confused Psychiatric: A+Ox3, euthymic affect Results & Data Results & Data ([facility]) Vital Signs (Past 12 Hours) Vital Signs Temp Pulse Pulse Resp BP Pulse Ox 09/11/21 15:31 36.3 C L 111 H 22 100/53 L 95 09/11/21 11:09 37.0 C 120 H 20 118/57 L 94 09/11/21 09:31 107 H 09/11/21 07:13 36.4 C L 112 H 20 133/76 99 PG Care Time/CCT Total # of Minutes Spent Total Time Spent with Patient: Total time spent is greater than 50% in coordination of care (as documented) at patient's floor/unit and/or counseling patient: Coding Level of Care Code 27541 Subseq Hosp Care Lvl 3 Diagnoses Pancreatitis K85.80 Acute pancreatitis complication: no infection or necrosis Chronicity: acute Pancreatitis type: other Hypertriglyceridemia E78.1 Uncontrolled type 2 diabetes mellitus E11.65 Glycemic state: with hyperglycemia Hyponatremia E87.1 HTN (hypertension) I10 Hypertension type: unspecified Asymptomatic bacteriuria R82.71 (1) Uncontrolled type 2 diabetes mellitus Glycemic state: with hyperglycemia Qualified Code(s): E11.65 - Type 2 diabetes mellitus with hyperglycemia (2) Pancreatitis Acute pancreatitis complication: no infection or necrosis Chronicity: acute Pancreatitis type: other Qualified Code(s): K85.80 - Other acute pancreatitis without necrosis or infection (3) HTN (hypertension) Hypertension type: unspecified Qualified Code(s): I10 - Essential (primary) hypertension
[2021-09-11 17:59] LABS: BUN Creatinine Ratio 5.4 (10-20); Calcium 8.8 mg/dl (8.5-10.1); Creatinine Clr Calc Pharmacy 157.7 ml/min; Est GFR (African American) 108.7 ml/min; Est GFR (Non-African American) 93.8 ml/min; Potassium 3.8 mmol/L (3.5-5.1)
[2021-09-11] MEDS: FENOFIBRATE NANOCRYSTALLIZED 145 MG TABLET PO SCH (20:54)
[2021-09-11] MEDS: ATORVASTATIN 40 MG TAB PO SCH (20:54)
[2021-09-12 01:18] LABS: Calcium 8.5 mg/dl (8.5-10.1)
[2021-09-12 02:13] LABS: BUN Creatinine Ratio 8.5 (10-20); Creatinine Clr Calc Pharmacy 165.1 ml/min; Est GFR (African American) 114.9 ml/min; Est GFR (Non-African American) 99.1 ml/min
[2021-09-12 04:05] LABS: Basophils # (auto) 0.02 K/uL (0-0.2); Basophils % (auto) 0.2 %; Eosinophils # (auto) 0.17 K/uL (0-0.5); Eosinophils % (auto) 1.7 %; Hematocrit (blood only) 34.5 % (42-52); Hemoglobin 12.5 g/dL (14.0-18.0); Immature Granulocytes # (auto) 0.04 K/uL (0.00-0.02); Immature Granulocytes % (auto) 0.4 %; Lymphocytes # (auto) 1.73 K/uL (1.2-3.4); Lymphocytes % (auto) 17.7 %; Mean Corpuscular Hemoglobin 30.7 pg (25-34); Mean Corpuscular Hgb Conc 36.2 g/dL (32-36); Mean Corpuscular Volume 84.8 fL (80-100); Mean Platelet Volume 10.6 fL (7.4-10.4); Monocytes # (auto) 1.09 K/uL (0.11-0.59); Monocytes % (auto) 11.2 %; Neutrophils # (auto) 6.72 K/uL (1.4-6.5); Neutrophils % (auto) 68.8 %; Platelet Count 177 K/uL (130-400); RDW Coefficient of Variation 14.1 % (11.5-14.5); RDW Standard Deviation 43.6 fL (36.4-46.3); Red Blood Count 4.07 M/uL (4.7-6.1); White Blood Count 9.77 K/uL (4.8-10.8)
[2021-09-12] MEDS: POTASSIUM CHLORIDE / WTR 10 MEQ/100 ML PLCT IV SCH ×2 (07:50→08:50)
[2021-09-12] MEDS ORDERED: oxyCODONE HCL IR 5 MG TAB (IMMEDIATE RELEASE) PO PRN (09:28)
[2021-09-12 10:27] LABS: Albumin Globulin Ratio 0.9 (0.9-2); Albumin Level 3.5 gm/dl (3.4-5.0); BUN Creatinine Ratio 8.8 (10-20); Bilirubin,Total 0.8 mg/dl (0.2-1.0); Calcium 8.5 mg/dl (8.5-10.1); Creatinine Clr Calc Pharmacy 220.6 ml/min; Est GFR (Non-African American) 126.8 ml/min; Globulin 3.7 gm/dl (2.5-4.0); Potassium 4.3 mmol/L (3.5-5.1); Total Protein 7.2 gm/dl (6.0-8.3)
[2021-09-12] MEDS ORDERED: POTASSIUM CHLORIDE CRTAB 20 MEQ TABCR PO STA (10:38)
--- NOTE | 2021-09-12 10:51 | Hospitalist Progress Note ---
Date of Service September 12, 2021 Assessment & Plan (1) Pancreatitis: Plan: Secondary to hypertriglyceridemia - Triglycerides 7898 on admission, improving with intravenous insulin -Patient has a history of hypertriglyceridemia pancreatitis. Denies alcohol use, abdominal trauma, recent changes to medications or addition of supplements. CT showed no gallstones. Patient has been without his cholesterol medication for about 3 weeks now. History of familial hypertriglyceridemia . Lipase elevated at 114. CT of the abdomen revealed peripancreatic stranding suggestive of acute pancreatitis. No evidence of pancreatitis necrosis. No peripancreatic fluid collections. -continue insulin drip 0.1 mg/kg/hour, (= 13.4 units/h), can discontinue once triglycerides < 500. -Replace potassium as needed. -D10W @ 75ml/hr - can stop LR at this time. -Low-fat/heart healthy as tolerated by patient. -Check triglycerides Q12h, BMP Q6h. (2) Asymptomatic bacteriuria: Plan: Staph growing in urine. Suspect contamination as no symptoms from this Blood culture negative @ 24 hours. Repeat UA pending No indication to start antibiotics at current time however if he was to spike a fever despite this possibly also being related to his pancreatitis would empirically treat for staph bacteremia. (3) Hypertriglyceridemia: Plan: -See above. -Continue atorvastatin 40 mg and fenofibrate 145 mg daily. (4) Uncontrolled type 2 diabetes mellitus: Plan: -Glucose elevated on admission 225. -On Metformin at home. will hold during hospitalization. -Currently on insulin drip due to hypertriglyceridemia pancreatitis. -BSG q2h. -HbA1c 11.5 (5) Hyponatremia: Plan: Resolved - suspect somewhat pseudohyponatremic secondary to hypertriglyceridemia (6) HTN (hypertension): Plan: Holding lisinopril due to relative hypotension, suspect he takes this more for proteinuria. Plan: VTE prophylaxis - SCDs, low risk given age despite higher risk condition with pancreatitis, he is mobile therefore will avoid Lovenox injections Diet - low fat, stop if worsening pain or nausea and will reduce back to clears Disposition - continued admission on PCU due to need for insulin IV Admission and Anticipated Discharge Date Admission Date: September 10, 2021 Subjective Patient feels ready to be discharged at this time. No significant pain after eating. Occasional nausea. No opiates since yesterday. Triglycerides down to 3259. Review of Systems Review of Systems: All systems reviewed & are unremarkable except as noted in Subjective Physical Exam Constitutional: well developed, well nourished and + obese; no acute distress Eyes: + anicteric sclerae; normal pupil size Neck: trachea midline, no thyromegaly Respiratory: normal respiratory effort, lungs clear to auscultation Cardiovascular: Rate/Rhythm: regular rate and regular rhythm Heart Sounds: no murmur Gastrointestinal (Abdomen): Percussion/Palpation: abdomen soft; abdomen nontender, no guarding and abdomen not rigid Skin: no rashes, warm and dry Neurologic: moves all extremities and awake; not confused Psychiatric: A+Ox3, euthymic affect Results & Data Results & Data ([facility]) Vital Signs (Past 12 Hours) Vital Signs Temp Pulse Pulse Resp BP BP Pulse Ox 09/12/21 08:04 37.1 C 88 16 133/84 95 09/12/21 03:08 37.6 C H 105 H 18 119/67 95 09/11/21 23:52 98 H 09/11/21 23:23 37 C 105 H 18 116/56 L 96 PG Care Time/CCT Total # of Minutes Spent Total Time Spent with Patient: Total time spent is greater than 50% in coordination of care (as documented) at patient's floor/unit and/or counseling patient: Coding Level of Care Code 70206 Subseq Hosp Care Lvl 3 Diagnoses Pancreatitis K85.80 Acute pancreatitis complication: no infection or necrosis Chronicity: acute Pancreatitis type: other Asymptomatic bacteriuria R82.71 Hypertriglyceridemia E78.1 Uncontrolled type 2 diabetes mellitus E11.65 Glycemic state: with hyperglycemia Hyponatremia E87.1 HTN (hypertension) I10 Hypertension type: unspecified (1) Uncontrolled type 2 diabetes mellitus Glycemic state: with hyperglycemia Qualified Code(s): E11.65 - Type 2 diabetes mellitus with hyperglycemia (2) Pancreatitis Acute pancreatitis complication: no infection or necrosis Chronicity: acute Pancreatitis type: other Qualified Code(s): K85.80 - Other acute pancreatitis without necrosis or infection (3) HTN (hypertension) Hypertension type: unspecified Qualified Code(s): I10 - Essential (primary) hypertension
[2021-09-12] MEDS: INSULIN REGULAR 250 UNITS in SODIUM CHLORIDE 0.9% 247.5 ML IV SCH (11:03)
[2021-09-12] MEDS: DEXTROSE 10% 1,000 ML IV SCH (12:46)
[2021-09-12 13:22] LABS: Anion Gap 11 (3-11); BUN Creatinine Ratio 7.2 (10-20); Blood Urea Nitrogen 6 mg/dl (6-23); Calcium 8.6 mg/dl (8.5-10.1); Carbon Dioxide 23 mmol/L (21-32); Chloride 101 mmol/L (98-107); Creatinine Clr Calc Pharmacy 212.6 ml/min; Est GFR (African American) 144.8 ml/min; Est GFR (Non-African American) 124.9 ml/min; Glucose 171 mg/dl (70-99(Fasting)); Sodium 135 mmol/L (136-145)
[2021-09-12 16:36] LABS: Appearance Urine Clear (Clear); Bacteria Urine Automated Negative (Negative); Bilirubin Urine Negative (Negative); Blood Urine Negative (Negative); Cast Urine Automated 0 /lpf (0-5); Color Urine Yellow; Glucose Urine UA Negative (Negative); Ketones Urine Negative (Negative); Leukocyte Esterase Urine Trace (Negative); Nitrite Urine Negative (Negative); Protein Urine Negative (Negative); RBC Urine Automated 0-4 /hpf (0-4); Specific Gravity Urine 1.007 (1.000-1.030); Urobilinogen Urine Negative (Negative); pH Urine 5.5 (4.5-7.5)
[2021-09-12] MEDS: ONDANSETRON INJ 2 MG/ML 2 ML VIAL IV PRN (17:06)
[2021-09-12 19:17] LABS: Potassium 4.1 mmol/L (3.5-5.1)
[2021-09-12 19:18] LABS: BUN Creatinine Ratio 8.7 (10-20); Calcium 9.5 mg/dl (8.5-10.1); Creatinine Clr Calc Pharmacy 191.8 ml/min; Est GFR (African American) 136.4 ml/min; Est GFR (Non-African American) 117.6 ml/min
[2021-09-12] MEDS: FENOFIBRATE NANOCRYSTALLIZED 145 MG TABLET PO SCH (20:43)
[2021-09-12] MEDS: ATORVASTATIN 40 MG TAB PO SCH (20:43)
[2021-09-12] MEDS ORDERED: Nursing to Pharmacy Communication SCH ×2 (23:00)
[2021-09-13 01:10] LABS: BUN Creatinine Ratio 9.1 (10-20); Calcium 9.1 mg/dl (8.5-10.1); Creatinine Clr Calc Pharmacy 200.5 ml/min; Est GFR (African American) 141.3 ml/min; Est GFR (Non-African American) 121.9 ml/min; Potassium 3.9 mmol/L (3.5-5.1)
[2021-09-13] MEDS: DEXTROSE 10% 1,000 ML IV SCH ×2 (03:53→15:54)
[2021-09-13] MEDS ORDERED: POTASSIUM CHLORIDE / WTR 10 MEQ/100 ML PLCT IV ONE (04:26)
[2021-09-13] MEDS ORDERED: POTASSIUM CHLORIDE CRTAB 20 MEQ TABCR PO STA ×2 (04:31→15:23)
[2021-09-13 06:41] LABS: Basophils # (auto) 0.02 K/uL (0-0.2); Basophils % (auto) 0.3 %; Eosinophils # (auto) 0.26 K/uL (0-0.5); Hematocrit (blood only) 33.3 % (42-52); Immature Granulocytes # (auto) 0.03 K/uL (0.00-0.02); Immature Granulocytes % (auto) 0.5 %; Lymphocytes # (auto) 1.77 K/uL (1.2-3.4); Lymphocytes % (auto) 27.3 %; Mean Corpuscular Hemoglobin 28.7 pg (25-34); Mean Corpuscular Volume 86.9 fL (80-100); Mean Platelet Volume 11.1 fL (7.4-10.4); Monocytes # (auto) 0.72 K/uL (0.11-0.59); Monocytes % (auto) 11.1 %; Neutrophils # (auto) 3.68 K/uL (1.4-6.5); Neutrophils % (auto) 56.8 %; Platelet Count 192 K/uL (130-400); RDW Coefficient of Variation 14.5 % (11.5-14.5); RDW Standard Deviation 45.8 fL (36.4-46.3); Red Blood Count 3.83 M/uL (4.7-6.1); White Blood Count 6.48 K/uL (4.8-10.8)
[2021-09-13 07:30] LABS: Alanine Aminotransferase 28 U/L (7-52); Albumin Level 3.4 gm/dl (3.4-5.0); Alkaline Phosphatase 38 U/L (34-104); BUN Creatinine Ratio 10.1 (10-20); Bilirubin,Total 0.6 mg/dl (0.2-1.0); Blood Urea Nitrogen 7 mg/dl (6-23); Calcium 8.6 mg/dl (8.5-10.1); Carbon Dioxide 25 mmol/L (21-32); Chloride 100 mmol/L (98-107); Creatinine Clr Calc Pharmacy 255.6 ml/min; Est GFR (African American) > 150.0 ml/min; Est GFR (Non-African American) 134.8 ml/min; Globulin 3.3 gm/dl (2.5-4.0); Glucose 175 mg/dl (70-99(Fasting)); Total Protein 6.7 gm/dl (6.0-8.3)
[2021-09-13 08:12] LABS: Triglycerides 1943 mg/dl (0-150)
--- NOTE | 2021-09-13 10:16 | Hospitalist Progress Note ---
Date of Service September 13, 2021 Assessment & Plan (1) Pancreatitis: Plan: Secondary to hypertriglyceridemia - Triglycerides 7898 on admission, improving with intravenous insulin -Patient has a history of hypertriglyceridemia pancreatitis. Denies alcohol use, abdominal trauma, recent changes to medications or addition of supplements. CT showed no gallstones. Patient has been without his cholesterol medication for about 3 weeks now. History of familial hypertriglyceridemia . Lipase elevated at 114. CT of the abdomen revealed peripancreatic stranding suggestive of acute pancreatitis. No evidence of pancreatitis necrosis. No peripancreatic fluid collections. -continue insulin drip 0.1 mg/kg/hour, (= 13.4 units/h), can discontinue once triglycerides < 500. Decrease temporarily last night due to glucose <180. Given relatively consistent glucose levels with this using D10W recommend early adjusting if persistent glucose greater than 250 or less than 140. -Replace potassium as needed. -D10W @ 75ml/hr. -Low-fat/heart healthy as tolerated by patient. -Check triglycerides Q12h, BMP Q6h. (2) Asymptomatic bacteriuria: Plan: Staph growing in urine. Suspect contamination as no symptoms from this Blood culture negative @ 48 hours. Repeat UA without bacteriuria No indication to start antibiotics. (3) Hypertriglyceridemia: Plan: -See above. -Continue atorvastatin 40 mg and fenofibrate 145 mg daily. (4) Uncontrolled type 2 diabetes mellitus: Plan: -Glucose elevated on admission 225. -On Metformin at home. will hold during hospitalization. -Currently on insulin drip due to hypertriglyceridemia pancreatitis. -BSG q2h. -HbA1c 11.5 -Appreciate education by prosthodontist/educator. (5) Hyponatremia: Plan: Resolved - suspect somewhat pseudohyponatremic secondary to hypertriglyceridemia (6) HTN (hypertension): Plan: Holding lisinopril due to relative hypotension, suspect he takes this more for proteinuria. Plan: VTE prophylaxis - SCDs, low risk given age despite higher risk condition with pancreatitis, he is mobile therefore will avoid Lovenox injections Diet - low fat, stop if worsening pain or nausea and will reduce back to clears Disposition - continued admission on PCU due to need for insulin IV Admission and Anticipated Discharge Date Admission Date: September 10, 2021 Subjective Abdominal pain resolved. No nausea or vomiting. Appetite at baseline. Having bowel movements. Review of Systems Review of Systems: All systems reviewed & are unremarkable except as noted in Subjective Physical Exam Constitutional: well developed, well nourished and + obese; no acute distress Eyes: + anicteric sclerae; normal pupil size Neck: trachea midline, no thyromegaly Respiratory: normal respiratory effort, lungs clear to auscultation Cardiovascular: Rate/Rhythm: regular rate and regular rhythm Heart Sounds: no murmur Gastrointestinal (Abdomen): Percussion/Palpation: abdomen soft; abdomen nontender, no guarding and abdomen not rigid Skin: no rashes, warm and dry Neurologic: moves all extremities and awake; not confused Psychiatric: A+Ox3, euthymic affect Results & Data Results & Data ([facility]) Vital Signs (Past 12 Hours) Vital Signs Temp Pulse Pulse Resp BP Pulse Ox 09/13/21 08:38 90 09/13/21 06:41 36.5 C 73 18 126/78 96 09/13/21 03:34 37.1 C 89 16 128/78 95 09/12/21 23:30 37.0 C 82 20 116/78 96 PG Care Time/CCT Total # of Minutes Spent Total Time Spent with Patient: Total time spent is greater than 50% in coordination of care (as documented) at patient's floor/unit and/or counseling patient: Coding Level of Care Code 54525 Subseq Hosp Care Lvl 2 Diagnoses Pancreatitis K85.80 Acute pancreatitis complication: no infection or necrosis Chronicity: acute Pancreatitis type: other Asymptomatic bacteriuria R82.71 Hypertriglyceridemia E78.1 Uncontrolled type 2 diabetes mellitus E11.65 Glycemic state: with hyperglycemia Hyponatremia E87.1 HTN (hypertension) I10 Hypertension type: unspecified (1) Uncontrolled type 2 diabetes mellitus Glycemic state: with hyperglycemia Qualified Code(s): E11.65 - Type 2 diabetes mellitus with hyperglycemia (2) Pancreatitis Acute pancreatitis complication: no infection or necrosis Chronicity: acute Pancreatitis type: other Qualified Code(s): K85.80 - Other acute pancreatitis without necrosis or infection (3) HTN (hypertension) Hypertension type: unspecified Qualified Code(s): I10 - Essential (primary) hypertension
[2021-09-13] MEDS: INSULIN REGULAR 250 UNITS in SODIUM CHLORIDE 0.9% 247.5 ML IV SCH (10:43)
[2021-09-13 14:09] LABS: Anion Gap 11 (3-11); Aspartate Aminotransferase 36 U/L (13-39); BUN Creatinine Ratio 10.1 (10-20); Blood Urea Nitrogen 7 mg/dl (6-23); Calcium 9.7 mg/dl (8.5-10.1); Carbon Dioxide 24 mmol/L (21-32); Chloride 103 mmol/L (98-107); Creatinine Clr Calc Pharmacy 255.6 ml/min; Est GFR (African American) > 150.0 ml/min; Est GFR (Non-African American) 134.8 ml/min; Glucose 178 mg/dl (70-99(Fasting)); Potassium 4.2 mmol/L (3.5-5.1); Sodium 138 mmol/L (136-145)
[2021-09-13 19:05] LABS: BUN Creatinine Ratio 9.9 (10-20); Calcium 9.7 mg/dl (8.5-10.1); Creatinine Clr Calc Pharmacy 217.7 ml/min; Est GFR (African American) 146.2 ml/min; Est GFR (Non-African American) 126.2 ml/min
[2021-09-13] MEDS: ATORVASTATIN 40 MG TAB PO SCH (20:54)
[2021-09-13] MEDS: FENOFIBRATE NANOCRYSTALLIZED 145 MG TABLET PO SCH (21:37)
[2021-09-14] MEDS ORDERED: Nursing to Pharmacy Communication SCH ×2 (01:30→05:30)
[2021-09-14 02:16] LABS: Anion Gap 9 (3-11); BUN Creatinine Ratio 10.3 (10-20); Blood Urea Nitrogen 8 mg/dl (6-23); Calcium 9.2 mg/dl (8.5-10.1); Carbon Dioxide 25 mmol/L (21-32); Chloride 102 mmol/L (98-107); Creatinine Clr Calc Pharmacy 226.1 ml/min; Est GFR (African American) 148.5 ml/min; Est GFR (Non-African American) 128.1 ml/min; Glucose 142 mg/dl (70-99(Fasting)); Sodium 136 mmol/L (136-145)
[2021-09-14] MEDS: DEXTROSE 10% 1,000 ML IV SCH ×4 (05:08→15:25)
[2021-09-14 07:40] LABS: Basophils # (auto) 0.02 K/uL (0-0.2); Basophils % (auto) 0.3 %; Eosinophils # (auto) 0.29 K/uL (0-0.5); Eosinophils % (auto) 4.6 %; Hematocrit (blood only) 34.7 % (42-52); Hemoglobin 11.6 g/dL (14.0-18.0); Immature Granulocytes # (auto) 0.03 K/uL (0.00-0.02); Immature Granulocytes % (auto) 0.5 %; Lymphocytes # (auto) 1.55 K/uL (1.2-3.4); Lymphocytes % (auto) 24.7 %; Mean Corpuscular Hemoglobin 28.9 pg (25-34); Mean Corpuscular Hgb Conc 33.4 g/dL (32-36); Mean Corpuscular Volume 86.3 fL (80-100); Mean Platelet Volume 10.4 fL (7.4-10.4); Monocytes # (auto) 0.65 K/uL (0.11-0.59); Monocytes % (auto) 10.4 %; Neutrophils # (auto) 3.74 K/uL (1.4-6.5); Neutrophils % (auto) 59.5 %; Platelet Count 232 K/uL (130-400); RDW Coefficient of Variation 14.3 % (11.5-14.5); RDW Standard Deviation 45.4 fL (36.4-46.3); Red Blood Count 4.02 M/uL (4.7-6.1); White Blood Count 6.28 K/uL (4.8-10.8)
[2021-09-14] MEDS: INSULIN REGULAR 250 UNITS in SODIUM CHLORIDE 0.9% 247.5 ML IV SCH (08:07)
[2021-09-14 08:41] LABS: Potassium 3.9 mmol/L (3.5-5.1)
[2021-09-14 08:43] LABS: Alanine Aminotransferase 47 U/L (7-52); Albumin Level 3.8 gm/dl (3.4-5.0); Alkaline Phosphatase 43 U/L (34-104); Anion Gap 10 (3-11); Aspartate Aminotransferase 39 U/L (13-39); BUN Creatinine Ratio 11.9 (10-20); Bilirubin,Total 0.5 mg/dl (0.2-1.0); Blood Urea Nitrogen 7 mg/dl (6-23); Calcium 9.9 mg/dl (8.5-10.1); Carbon Dioxide 24 mmol/L (21-32); Chloride 100 mmol/L (98-107); Creatinine Clr Calc Pharmacy 296.6 ml/min; Est GFR (African American) > 150.0 ml/min; Est GFR (Non-African American) 143.7 ml/min; Globulin 3.8 gm/dl (2.5-4.0); Glucose 144 mg/dl (70-99(Fasting)); Sodium 134 mmol/L (136-145); Total Protein 7.6 gm/dl (6.0-8.3); Triglycerides 1497 mg/dl (0-150)
[2021-09-14] MEDS: OMEGA-3 (PURIFIED FISH OIL) 1 GM CAP PO SCH ×2 (11:42→20:55)
[2021-09-14 13:22] LABS: Potassium 4.4 mmol/L (3.5-5.1)
[2021-09-14 13:39] LABS: Anion Gap 9 (3-11); BUN Creatinine Ratio 11.8 (10-20); Blood Urea Nitrogen 8 mg/dl (6-23); Calcium 9.5 mg/dl (8.5-10.1); Carbon Dioxide 25 mmol/L (21-32); Chloride 99 mmol/L (98-107); Creatinine Clr Calc Pharmacy 257.3 ml/min; Est GFR (African American) > 150.0 ml/min; Est GFR (Non-African American) 135.6 ml/min; Glucose 202 mg/dl (70-99(Fasting)); Sodium 133 mmol/L (136-145)
--- NOTE | 2021-09-14 17:19 | Hospitalist Progress Note ---
Date of Service September 14, 2021 Assessment & Plan (1) Pancreatitis: Plan: Acute Pancreatitis secondary to hypertriglyceridemia - Triglycerides 7898 on admission, improving with intravenous insulin, triglycerides are now down to 1497 mg/dL. Goal is to continue insulin drip and other antilipid medications until Triglycerides are = or < 500 mg/dL -Patient has a history of hypertriglyceridemia pancreatitis. He denies alcohol use, abdominal trauma, recent changes to medications or addition of supplements. CT showed no gallstones. Patient has been without his cholesterol medication for about 3 to 4 weeks now. History of familial hypertriglyceridemia . Lipase elevated at 114 u/L. CT of the abdomen revealed peripancreatic stranding suggestive of acute pancreatitis. No evidence of pancreatitis necrosis. No peripancreatic fluid collections. -- Continue insulin drip 0.1 mg/kg/hour, (= 13.4 units/h), can discontinue once triglycerides < 500. Decrease temporarily last night due to glucose <180. -- Given relatively consistent glucose levels with this using D10W recommend early adjusting if persistent glucose greater than 250 or less than 140. -- Replace potassium as needed. -- D10W @ 75ml/hr. -- Low-fat/heart healthy as tolerated by patient. -- Monitor daily labs. (2) Asymptomatic bacteriuria: Plan: -- Staph aureus grew out twice on urine cultures. Susceptible to most antibiotics. -- Blood culture negative @ 48 hours. -- Considering he has a non-obstructing left renal stone -- will begin Bactrim DS b.i.d.. (3) Hypertriglyceridemia: Plan: -- Manage as outlined above. -- Continue Atorvastatin 40 mg daily. -- Continue Fenofibrate 145 mg daily. (4) Uncontrolled type 2 diabetes mellitus: Plan: -- On Metformin at home. will hold during hospitalization. -- Currently on insulin drip due to hypertriglyceridemia pancreatitis. -- Frequent BSG checks -- HbA1c 11.5% -- Appreciate education by family living educator. (5) Hyponatremia: Plan: -- Resolved - suspect somewhat pseudohyponatremic secondary to hypertriglyceridemia (6) HTN (hypertension): Plan: -- Holding Lisinopril due to relative hypotension, suspect he takes this for proteinuria / renal protective benefits. Plan: VTE prophylaxis - SCDs, low risk given age despite higher risk condition with pancreatitis, he is mobile therefore will avoid Lovenox injections Diet - low fat, stop if worsening pain or nausea and will reduce back to clears Disposition - continued admission on PCU due to need for insulin IV Admission and Anticipated Discharge Date Admission Date: September 10, 2021 Supervising Physician Co-Signing Physician Notes chart reviewed agree [facility] Subjective Mr Bravo is a 21 year old male with a history of Type 2 Diabetes Mellitus, Hypertension, Dyslipidemia, Hypertriglyceridemia, Hypertension, and Obesity who had been off of Atorvastatin and Fenofibrate for approximately 1month and he developed Acute Pancreatitis secondary to Hypertriglyceridemia. Triglycerides on admission were 7898 mg/dL and his diabetes was not controlled. Insulin drip is being used and his numbers have been improving. His triglyceride levels today are down to 1497 mg/dL. Patient continues to feel very well. He no longer has abdominal pain. He is eating and drinking without nausea vomiting or abdominal discomfort. Patient is very anxious go as he misses his children. Patient offers no other complaints. Fevers chills, back, or flank pain. He denies any chest pain or shortness of breath. Review of Systems Review of Systems: Ten point review of systems was completed and is negative with the exception what is mentioned the HPI. Physical Exam Physical Exam: GENERAL: Patient in no acute distress. HEENT: Head is atraumatic, normocephalic. Sclerae anicteric. EOM's intact. Facies symmetric. No perioral cyanosis. NECK: No JVD. JVP is not elevated. Carotid upstrokes are + 2 bilaterally. No bruits are noted. CHEST/LUNGS: Clear to auscultation throughout all lung mauro. No wheezes, rales, or crackles. CVS: S1 and S2 are regular without obvious murmurs, gallops, or rubs. PMI is nonpalpable. No lifts, heaves, or thrills. No abdominal aortic or renal bruits. ABDOMINAL EXAM: Bowel sounds are present. No masses, organomegaly, or tenderness. EXTREMITIES: No clubbing or cyanosis. No edema. Intact posterior tibial and radial pulses bilaterally. NEUROLOGIC EXAM: Patient is awake, alert, and oriented. Pleasant and cooperative. Answers questions appropriately. Speech is clear. Normal movement in all 4 extremities. Gait pattern is unremarkable. Results & Data Results & Data ([facility]) Vital Signs (Past 12 Hours) Vital Signs Temp Pulse Pulse Resp BP Pulse Ox 09/14/21 16:00 36.4 C L 87 18 98/54 L 98 09/14/21 12:00 36.6 C 77 18 115/56 L 96 09/14/21 08:00 36.5 C 80 72 18 104/62 100 Laboratory Results Laboratory Results - last 24 hr 09/13/21 09/13/21 09/13/21 17:13 17:56 18:13 WBC RBC Hgb Hct MCV MCH MCHC RDW Std Deviation RDW Coeff of Yvon Plt Count MPV Immature Gran % (Auto) Neut % (Auto) Lymph % (Auto) [place] % (Auto) Eos % (Auto) Baso % (Auto) Neut # (Auto) Lymph # (Auto) [place] # (Auto) Eos # (Auto) Baso # (Auto) Immature Gran # (Auto) Sodium 132 L Potassium Chloride 98 Carbon Dioxide 24 Anion Gap 10 BUN 8 Creatinine 0.81 Est Cr Clr Drug Dosing 217.7 Est GFR ( Amer) 146.2 Est GFR (Non-Af Amer) 126.2 BUN/Creatinine Ratio 9.9 L Glucose 176 H POC Glucose 198 H 184 H Calcium 9.7 Total Bilirubin AST ALT Alkaline Phosphatase Total Protein Albumin Globulin Albumin/Globulin Ratio Triglycerides 2024 H 09/13/21 09/13/21 09/13/21 19:11 19:34 21:10 WBC RBC Hgb Hct MCV MCH MCHC RDW Std Deviation RDW Coeff of Yvon Plt Count MPV Immature Gran % (Auto) Neut % (Auto) Lymph % (Auto) [place] % (Auto) Eos % (Auto) Baso % (Auto) Neut # (Auto) Lymph # (Auto) [place] # (Auto) Eos # (Auto) Baso # (Auto) Immature Gran # (Auto) Sodium Potassium 4.1 Chloride Carbon Dioxide Anion Gap BUN Creatinine Est Cr Clr Drug Dosing Est GFR ( Amer) Est GFR (Non-Af Amer) BUN/Creatinine Ratio Glucose POC Glucose 164 H 136 H Calcium Total Bilirubin AST ALT Alkaline Phosphatase Total Protein Albumin Globulin Albumin/Globulin Ratio Triglycerides 09/13/21 09/14/21 09/14/21 23:05 00:21 01:13 WBC RBC Hgb Hct MCV MCH MCHC RDW Std Deviation RDW Coeff of Yvon Plt Count MPV Immature Gran % (Auto) Neut % (Auto) Lymph % (Auto) [place] % (Auto) Eos % (Auto) Baso % (Auto) Neut # (Auto) Lymph # (Auto) [place] # (Auto) Eos # (Auto) Baso # (Auto) Immature Gran # (Auto) Sodium 136 Potassium TNP Chloride 102 Carbon Dioxide 25 Anion Gap 9 BUN 8 Creatinine 0.78 Est Cr Clr Drug Dosing 226.1 Est GFR ( Amer) 148.5 Est GFR (Non-Af Amer) 128.1 BUN/Creatinine Ratio 10.3 Glucose 142 H POC Glucose 215 H 126 H Calcium 9.2 Total Bilirubin AST ALT Alkaline Phosphatase Total Protein Albumin Globulin Albumin/Globulin Ratio Triglycerides 09/14/21 09/14/21 09/14/21 03:21 05:05 06:16 WBC RBC Hgb Hct MCV MCH MCHC RDW Std Deviation RDW Coeff of Yvon Plt Count MPV Immature Gran % (Auto) Neut % (Auto) Lymph % (Auto) [place] % (Auto) Eos % (Auto) Baso % (Auto) Neut # (Auto) Lymph # (Auto) [place] # (Auto) Eos # (Auto) Baso # (Auto) Immature Gran # (Auto) Sodium Potassium Chloride Carbon Dioxide Anion Gap BUN Creatinine Est Cr Clr Drug Dosing Est GFR ( Amer) Est GFR (Non-Af Amer) BUN/Creatinine Ratio Glucose POC Glucose 141 H 146 H 165 H Calcium Total Bilirubin AST ALT Alkaline Phosphatase Total Protein Albumin Globulin Albumin/Globulin Ratio Triglycerides 09/14/21 09/14/21 09/14/21 07:20 07:20 07:20 WBC 6.28 RBC 4.02 L Hgb 11.6 L Hct 34.7 L MCV 86.3 MCH 28.9 MCHC 33.4 RDW Std Deviation 45.4 RDW Coeff of Yvon 14.3 Plt Count 232 MPV 10.4 Immature Gran % (Auto) 0.5 Neut % (Auto) 59.5 Lymph % (Auto) 24.7 [place] % (Auto) 10.4 Eos % (Auto) 4.6 Baso % (Auto) 0.3 Neut # (Auto) 3.74 Lymph # (Auto) 1.55 [place] # (Auto) 0.65 H Eos # (Auto) 0.29 Baso # (Auto) 0.02 Immature Gran # (Auto) 0.03 H Sodium Cancelled 134 L Potassium Cancelled 3.9 Chloride Cancelled 100 Carbon Dioxide Cancelled 24 Anion Gap Cancelled 10 BUN Cancelled 7 Creatinine Cancelled 0.59 L Est Cr Clr Drug Dosing Cancelled 296.6 Est GFR ( Amer) Cancelled > 150.0 Est GFR (Non-Af Amer) Cancelled 143.7 BUN/Creatinine Ratio Cancelled 11.9 Glucose Cancelled 144 H POC Glucose Calcium Cancelled 9.9 Total Bilirubin 0.5 AST 39 ALT 47 Alkaline Phosphatase 43 Total Protein 7.6 Albumin 3.8 Globulin 3.8 Albumin/Globulin Ratio 1.0 Triglycerides Cancelled 1497 H 09/14/21 09/14/21 09/14/21 08:04 10:47 12:09 WBC RBC Hgb Hct MCV MCH MCHC RDW Std Deviation RDW Coeff of Yvon Plt Count MPV Immature Gran % (Auto) Neut % (Auto) Lymph % (Auto) [place] % (Auto) Eos % (Auto) Baso % (Auto) Neut # (Auto) Lymph # (Auto) [place] # (Auto) Eos # (Auto) Baso # (Auto) Immature Gran # (Auto) Sodium 133 L Potassium 4.4 Chloride 99 Carbon Dioxide 25 Anion Gap 9 BUN 8 Creatinine 0.68 Est Cr Clr Drug Dosing 257.3 Est GFR ( Amer) > 150.0 Est GFR (Non-Af Amer) 135.6 BUN/Creatinine Ratio 11.8 Glucose 202 H POC Glucose 183 H 245 H Calcium 9.5 Total Bilirubin AST ALT Alkaline Phosphatase Total Protein Albumin Globulin Albumin/Globulin Ratio Triglycerides 09/14/21 14:57 WBC RBC Hgb Hct MCV MCH MCHC RDW Std Deviation RDW Coeff of Yvon Plt Count MPV Immature Gran % (Auto) Neut % (Auto) Lymph % (Auto) [place] % (Auto) Eos % (Auto) Baso % (Auto) Neut # (Auto) Lymph # (Auto) [place] # (Auto) Eos # (Auto) Baso # (Auto) Immature Gran # (Auto) Sodium Potassium Chloride Carbon Dioxide Anion Gap BUN Creatinine Est Cr Clr Drug Dosing Est GFR ( Amer) Est GFR (Non-Af Amer) BUN/Creatinine Ratio Glucose POC Glucose 161 H Calcium Total Bilirubin AST ALT Alkaline Phosphatase Total Protein Albumin Globulin Albumin/Globulin Ratio Triglycerides Diagnostic Findings CTAP 09/10/21: Lung bases are unremarkable. No pneumatosis, free air or portal venous gas is present. Bilateral gynecomastia is noted. The liver is enlarged, measuring 27 cm in craniocaudal dimension. Hepatic steatosis is present. There is mild splenomegaly. No hepatic lesions are present. The adrenal glands and right kidney are normal. Note is made of a 6 mm left renal calculus. There are no ureteral calculi and there is no hydronephrosis. There is mild peripancreatic infiltration which extends into the mesentery. There is no evidence for pancreatic necrosis. No peripancreatic fluid collection is present. There is no pericholecystic infiltration. The appendix is normal. Caliber and wall thickness of small and large bowel are normal. Colonic diverticulosis is noted without evidence for acute diverticulitis. No acute fracture or suspicious lesion is identified within the visualized skeletal structures. IMPRESSION: 1. Peripancreatic stranding suggestive of acute pancreatitis. No evidence for pancreatic necrosis. No peripancreatic fluid collections. 2. Hepatic steatosis and hepatomegaly. Mild splenomegaly. 3. 6 mm left renal calculus. No ureteral calculi. No hydronephrosis. Medications Administered Medications atorvastatin 40 mg tablet 40 mg PO HS #30 tab 04/23/19 [History Confirmed 09/10/21] blood sugar diagnostic (BBE Verio test strips) #10 ea 04/23/19 [History C onfirmed 04/23/19] cholecalciferol (vitamin D3) 25 mcg (1,000 unit) capsule 1,000 units PO DAILY 04/23/19 [History Confirmed 09/10/21] cyanocobalamin (vitamin B-12) 1,000 mcg capsule 1,000 mcg PO DAILY 04/23/19 [History Confirmed 09/10/21] fenofibrate nanocrystallized 145 mg tablet 145 mg PO HS #30 tab 04/23/19 [History Confirmed 09/10/21] insulin glargine 100 unit/mL (3 mL) subcutaneous pen (Lantus Solostar U-100 Insulin) 15 units SQ BID 04/23/19 [History Confirmed 09/10/21] lancets 33 gauge (BBE [employer] Lancets) #100 ea 04/23/19 [History Confirmed 04/23/19] lisinopril 10 mg tablet 10 mg PO DAILY #30 tab 04/23/19 [History Confirmed 09/10/21] metformin 1,000 mg tablet 1,000 mg PO BID #60 tab 04/23/19 [History Confirmed 09/10/21] omega-3 fatty acids 1,000 mg capsule 1,000 mg PO TID 09/10/21 [History Confirmed 09/10/21] blood sugar diagnostic (OneTouch Verio test strips) #100 ea 09/11/21 [Rx] lancets 33 gauge (OneTouch Delica Lancets) #100 ea 09/11/21 [Rx] pen needle, diabetic 32 gauge x 5/32" #100 ea 09/11/21 [Rx] Home Medications Acetaminophen (Acetaminophen 325 Mg Tab) 650 mg PO Q4H PRN PRN Reason: Pain or Fever Stop: 10/10/21 19:17 Last Admin: 09/10/21 22:34 Dose: 650 mg Documented by: Atorvastatin Calcium (Atorvastatin 40 Mg Tab) 40 mg PO QPM CHERI Stop: 10/10/21 20:59 Last Admin: 09/13/21 20:54 Dose: 40 mg Documented by: Dextrose (Dextrose 50% 50 Ml Syringe) 25 - 50 ml IV UD PRN; Protocol PRN Reason: Hypoglycemia Protocol Stop: 10/10/21 19:03 Fenofibrate (Fenofibrate Nanocrystallized 145 Mg Tablet) 145 mg PO QPM CHERI Stop: 10/10/21 20:59 Last Admin: 09/13/21 21:37 Dose: 145 mg Documented by: Fish Oil ([place]-3 (Purified Fish Oil) 1 Gm Cap) 1 gm PO BID CHERI Stop: 10/14/21 09:44 Last Admin: 09/14/21 11:42 Dose: 1 gm Documented by: Glucagon (Glucagon For Inj 1 Mg Vial) 1 mg SQ UD PRN; Protocol PRN Reason: Hypoglycemia Protocol Stop: 10/10/21 19:03 Glucose (Glucose 10 Tabs/Tube) 4 - 8 tabs PO UD PRN; Protocol PRN Reason: Hypoglycemia Protocol Stop: 10/10/21 19:03 Glucose (Glucose 40% Gel 15 Gm Tube) 15 - 30 gm PO UD PRN; Protocol PRN Reason: Hypoglycemia Protocol Stop: 10/10/21 19:03 Hydromorphone HCl (Hydromorphone Inj 1 Mg/Ml Syringe) 1 mg IV Q4H PRN PRN Reason: Severe Pain Stop: 09/24/21 19:17 Last Admin: 09/11/21 20:10 Dose: 1 mg Documented by: Insulin Human Regular 250 (units/ Sodium Chloride) 250 mls @ 13.44 mls/hr IV .[id number] [facility] Stop: 10/10/21 18:14 Last Admin: 09/14/21 08:07 Dose: 0.1 units/kg/hr, 13.4 mls/hr Documented by: Dextrose (D10w) 1,000 mls @ 100 mls/hr IV .Q10H [facility] Stop: 10/10/21 19:17 Last Admin: 09/14/21 15:25 Dose: 100 mls/hr Documented by: Lisinopril (Lisinopril 10 Mg Tab) 10 mg PO DAILY [facility] Stop: 10/11/21 08:59 Last Admin: 09/11/21 08:27 Dose: 10 mg Documented by: Miscellaneous (Carbohydrates For Hypoglycemia ) 15 - 30 gm PO UD PRN PRN Reason: Hypoglycemia Protocol Stop: 10/10/21 19:03 Ondansetron HCl (Ondansetron Inj 2 Mg/Ml 2 Ml Vial) 4 mg IV Q6H PRN PRN Reason: Nausea Stop: 10/10/21 19:17 Last Admin: 09/12/21 17:06 Dose: 4 mg Documented by: Oxycodone HCl (Oxycodone Hcl Ir 5 Mg Tab (Immediate Release)) 5 mg PO Q4H PRN PRN Reason: Pain Stop: 09/26/21 09:27 Polyethylene Glycol (Polyethylene (Miralax) 17 Gm Pack) 17 gm PO DAILY PRN PRN Reason: Constipation Stop: 10/10/21 19:17 Trimethoprim/Sulfamethoxazole (Sulfamethoxazole/Trimethoprim Ds 800/160mg Tab) 1 tab PO Q12 [facility] Stop: 09/19/21 20:59 PG Care Time/CCT Total # of Minutes Spent Total Time Spent with Patient: Total time spent is greater than 50% in coordination of care (as documented) at patient's floor/unit and/or counseling patient:48 Coding Level of Care Code 13300 Subseq Hosp Care Lvl 3 Diagnoses Pancreatitis K85.80 Acute pancreatitis complication: no infection or necrosis Chronicity: acute Pancreatitis type: other Asymptomatic bacteriuria R82.71 Hypertriglyceridemia E78.1 Uncontrolled type 2 diabetes mellitus E11.65 Glycemic state: with hyperglycemia Hyponatremia E87.1 HTN (hypertension) I10 Hypertension type: unspecified Time Spent (min) 55 (1) Uncontrolled type 2 diabetes mellitus Glycemic state: with hyperglycemia Qualified Code(s): E11.65 - Type 2 diabetes mellitus with hyperglycemia (2) Pancreatitis Acute pancreatitis complication: no infection or necrosis Chronicity: acute Pancreatitis type: other Qualified Code(s): K85.80 - Other acute pancreatitis without necrosis or infection (3) HTN (hypertension) Hypertension type: unspecified Qualified Code(s): I10 - Essential (primary) hypertension
[2021-09-14 19:22] LABS: Calcium 9.8 mg/dl (8.5-10.1); Creatinine Clr Calc Pharmacy 196.6 ml/min; Est GFR (African American) 140.7 ml/min; Est GFR (Non-African American) 121.4 ml/min; Potassium 4.1 mmol/L (3.5-5.1)
[2021-09-14] MEDS: SULFAMETHOXAZOLE/TRIMETHOPRIM DS 800/160MG TAB PO SCH (20:54)
[2021-09-14] MEDS: FENOFIBRATE NANOCRYSTALLIZED 145 MG TABLET PO SCH (20:54)
[2021-09-14] MEDS: ATORVASTATIN 40 MG TAB PO SCH (20:55)
--- NOTE | 2021-09-14 22:36 | Electrocardiogram Report ---
Test Reason : Blood Pressure : / mmHG Vent. Rate : 078 BPM Atrial Rate : 078 BPM P-R Int : 156 ms QRS Dur : 114 ms QT Int : 372 ms P-R-T Axes : 046 048 -65 degrees QTc Int : 424 ms Normal sinus rhythm T wave abnormality, consider inferior ischemia Nonspecific T wave abnormality Abnormal ECG No previous ECGs available Confirmed by Ravi Smith ([id number]) on 09/14/2021 10:36:21 PM Referred By: REFERRED SELF Confirmed By:Ravi Smith
[2021-09-15] MEDS: DEXTROSE 10% 1,000 ML IV SCH ×4 (00:23→09:51)
[2021-09-15] MEDS: INSULIN REGULAR 250 UNITS in SODIUM CHLORIDE 0.9% 247.5 ML IV SCH (02:15)
[2021-09-15] MEDS ORDERED: Nursing to Pharmacy Communication SCH ×2 (02:45→04:45)
[2021-09-15 06:59] LABS: Basophils # (auto) 0.02 K/uL (0-0.2); Basophils % (auto) 0.3 %; Eosinophils # (auto) 0.25 K/uL (0-0.5); Eosinophils % (auto) 3.8 %; Hematocrit (blood only) 36.9 % (42-52); Hemoglobin 12.2 g/dL (14.0-18.0); Immature Granulocytes # (auto) 0.05 K/uL (0.00-0.02); Immature Granulocytes % (auto) 0.8 %; Lymphocytes # (auto) 2.03 K/uL (1.2-3.4); Lymphocytes % (auto) 30.8 %; Mean Corpuscular Hemoglobin 28.4 pg (25-34); Mean Corpuscular Hgb Conc 33.1 g/dL (32-36); Monocytes # (auto) 0.61 K/uL (0.11-0.59); Monocytes % (auto) 9.2 %; Neutrophils # (auto) 3.64 K/uL (1.4-6.5); Neutrophils % (auto) 55.1 %; Platelet Count 276 K/uL (130-400); RDW Coefficient of Variation 14.1 % (11.5-14.5); Red Blood Count 4.29 M/uL (4.7-6.1)
[2021-09-15 07:49] LABS: Alanine Aminotransferase 49 U/L (7-52); Albumin Level 3.9 gm/dl (3.4-5.0); Alkaline Phosphatase 42 U/L (34-104); Anion Gap 10 (3-11); BUN Creatinine Ratio 12.5 (10-20); Bilirubin,Total 0.4 mg/dl (0.2-1.0); Blood Urea Nitrogen 9 mg/dl (6-23); Calcium 9.5 mg/dl (8.5-10.1); Carbon Dioxide 24 mmol/L (21-32); Chloride 99 mmol/L (98-107); Est GFR (African American) > 150.0 ml/min; Est GFR (Non-African American) 132.4 ml/min; Globulin 4.1 gm/dl (2.5-4.0); Glucose 127 mg/dl (70-99(Fasting)); Sodium 133 mmol/L (136-145); Triglycerides 1240 mg/dl (0-150)
[2021-09-15] MEDS: SULFAMETHOXAZOLE/TRIMETHOPRIM DS 800/160MG TAB PO SCH (08:05)
[2021-09-15] MEDS: OMEGA-3 (PURIFIED FISH OIL) 1 GM CAP PO SCH (08:05)
[2021-09-15 08:20] LABS: Potassium 3.8 mmol/L (3.5-5.1)
[2021-09-15 08:25] LABS: Aspartate Aminotransferase 35 U/L (13-39)
--- NOTE | 2021-09-15 20:20 | Discharge Summary ---
Date of Service September 15, 2021 Admission HPI Per Admitting Provider Patient is a 21-year-old male with a past medical history of poorly controlled type 2 diabetes, hypertension, hypertriglyceridemia, hospitalized several times with pancreatitis, and obesity who presents with abdominal pain. Patient states yesterday morning, he woke up feeling generally fatigued and developed epigastric abdominal pain with radiation up to his chest. He tried managing at home with 800 mg of ibuprofen which he states took away the pain somewhat for about 8 hours, however it came back and he was unable to control it. Denies fever/chills, palpitations, shortness of breath, cough, headache, nausea, vomiting, diarrhea, constipation, melena, hematochezia, urinary changes. He states he is very good at staying hydrated, he has been tolerating p.o. intake both food and liquids at home very well. Patient states he was previously hospitalized beginning of the month in [place] for hypertriglyceridemia induced pancreatitis. He was discharged and encouraged to follow-up with PCP, he had scheduled an appointment for this past Saturday, however patient missed this appointment. He has been taking insulin and BP meds as scheduled but has been without his cholesterol medication for about 3 weeks. 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 He states he has been trying to eat healthier, avoid sodium and fatty foods. Attempting to increase his protein intake. Principal Diagnosis pancreatitis due to hypertriglyceridemia Discharge Exam In general he is awake and alert pleasant no distress. HEENT normocephalic atraumatic mucous membranes moist. Breathing unlabored no accessory muscle use good effort. Skin shows no rashes no pallor or icterus. Neuro without focal deficits. Discharge Data Allergies Allergy/AdvReac Type Severity Reaction Status Date / Time erythromycin base Allergy Unknown HAPPENED Verified 09/10/21 15:16 A CHILD liraglutide [From Victoza] Allergy Unknown SEE COMMENT Verified 09/10/21 15:16 Consultations 09/10/21 17:38 ED Decision to Admit Stat Ordered Studies 09/10/21 15:38 CT abd pelvis IV con only Stat Diabetes Follow up Diabetes Follow-up Needed for HgbA1c >9% Hospital Course (1) Pancreatitis: Acute Pancreatitis secondary to hypertriglyceridemia - Triglycerides 7898 on admission, improved down to about 1200. Treated with insulin drip, fluids, supportive care. Symptomatically improved or he wanted to go home yesterday, by guidelines triglycerides are usually to be below 500 prior to dischargehowever with his very slow rate of change now, he and I both suspect that it could take days to weeks before he is below 500. Given that he is asymptomatic now for multiple days, initiated back on his medications (which it sounds like he was not able to get or were not sent to the pharmacy not clearbut now he will be able to get them) cautiously safe for home. Extensive discussion of lifestyle change see below under diabetes (2) Hypertriglyceridemia: Atorvastatin, fenofibrate, fish oil, lifestyle change (3) Uncontrolled type 2 diabetes mellitus: A1c 11.5%. Discussed critical role of lifestyle in control/remission of type 2 diabetes. Discussed this also in the context of essentially the same lifestyle changes being critical to improving his hypertriglyceridemia. His diet consists heavily of starchy carbohydrates. We discussed how this would be driving both metabolic processes. Discussed "high sugars clog arteries" and insulin resistance as a progressive problem. Discussed postprandial glucose monitoring as a very good means to learn from his diet. Home on home meds (4) Hyponatremia: -- Resolved - suspect pseudohyponatremic secondary to hypertriglyceridemia (5) Asymptomatic bacteriuria: No treatment indicated (6) HTN (hypertension): home on home meds VTE prophylaxis - SCDs, low risk given age despite higher risk condition with pancreatitis, he is mobile therefore will avoid Lovenox injections home, outpt f/u Total Time Total Time Spent Total Time Spent (In Minutes): >30 Discharge Plan Discharge Items Patient Disposition: Home - Self-Care Reason For Visit: HYPERTRIGLYCEDRIDEMIA PANCREATITIS Discharge Diagnosis: Pancreatitis caused by high triglycerides Activity: Resume your previous activity Non-emergency contact: Primary Care Provider Call non-emergency contact if: you have any medication questions and your symptoms worsen Follow-up/Referrals: PCP,NO [Primary Care Provider] - Diet: Carb Consistent or DM2 Addtl Attending Provider Instructions: High triglyceride pancreatitis -Fortunately your pancreatitis is improving. I would recommend a fairly bland relatively low-fat diet for the next week or 2, and then you can gradually work your way up to regular foods as long as her stomach continues to feel okay. Otherwise the main management for this is as outlined below under high triglycerides -As we discussed, by guidelines we really generally keep people in the hospital until the triglyceride levels get below 500. With you, however, given that your symptoms have essentially resolved for days and your triglyceride levels have settled into the low 1000 range, I really suspect it may take weeks for your triglycerides to get to where the guidelines would recommend. To that end I do believe it is cautiously safe to let you go home High triglycerides -As we discussed, certainly you do have a genetic component of high triglyceridesand for this we will be utilizing the medicines (fenofibrate, omega-3 fatty acids, and atorvastatin)however, as we discussed, even whenever somebody has genetically high triglycerides lifestyle can still play an enormous role in the overall management. Typically simple carbohydrates (in your case starches, but sugars certainly can do this as well) become triglycerides as they are packaged up when they are absorbed from her intestines. To that end, getting away from starchy carbohydrates (and still avoiding sugary carbs as well) should help keep your triglycerides in a much more reasonable range when you are on your medications. As far as the specificssee below under diabetes. Type 2 diabetes -The main reason to care about sugar is that high sugars clog arteries. Generally the longer you run high in the higher you run the more you clog up blood vessels that you cannot get back. -Is a reasonable frame of reference, anytime your sugar is above [id number] you will be doing a degree of clogging of small blood vessels. In terms of an A1c (an A1c is a pretty decent marker of what your sugars have been doing over the last 3 monthsred blood cells live for about 90 days, and an A1c is a measure of how much your red cell looks like a glazed doughnutso higher overall average of sugar over the last few months would lead to a higher A1c) any A1c above about 7.0 correlates to a large degree with high sugars clogging arteries. For reference, your current A1c was 11.5%. Because you are so young, we are built with so much reserve vasculature, that even though you have clogged arteries from the sugars and triglycerides you have had, you have enough "backup" that you still are probably a long way from having a heart attack or strokei.e. there is plenty of time and benefit to be had from making improvements -Type 2 diabetes comes about from what we call insulin resistance. When we eat foods that are more loaded with starches (or sugars) then her body can handle, it all makes a spike a sugar fairly quickly. In trying to process that high sugar, her pancreas then makes a spike of insulin to get the sugar out of our bloodstream and into our muscles. With type 2 diabetes what happens is insulin resistance (our analogy of insulin addiction makes it really easy to understand)where your muscles and a progressively wanting more and more insulin to get the same amount of sugar out of your bloodstream and into your muscles. In that respect, it probably takes you a lot more insulin to get [place] fries out of your bloodstream now than it did 5 years ago. Your pancreas is probably making as much insulin as it possibly can, but arm muscles "addiction" has no real limit that I have ever seenso the muscles asking for insulin can easily exceed what your pancreas is able to produce. Fortunately, however, the same process that causes insulin resistance can be used "backwards" to reverse itif you get away from simple/starchy carbs (and continue to avoid sugary carbs) you can get your sugar under control (usually fairly quickly), and just as important/more important you can start to regress your insulin resistance. Generically speaking, most type 2 diabetes is an illness that is about 80% l ifestyle, about 20% geneticswhile you are probably more genetic than most people, that should still give you the optimism to know that you will be able to be in control of the majority of what happens with your diabetes. -A nice way to learn eating habits easily is to check your sugar about 2 hours after you eat. During that time your body will of had enough time to absorb the carbohydrates, make insulin, and get as much out of the bloodstream as it can. In that respect, whenever you eat foods that bump your sugar to more than about 604196 in that 2-hour after you eat window, that becomes a nice clue that those foods were a lot more loaded with carbohydrates that your body can handle. When that happens, you can recognize what you just ate, and learn to start to cut back/avoid it. What you will probably find is that things like the bagel in your breakfast sandwich, and the [place] fries, will spike your sugar quite a bit. Conversely things like fruits and vegetables, and lean protein (without a carbohydrate around it) will probably spike a sugar a lot less. -It can take a little while to regress insulin resistance, so even with eating changes at first you may notice your sugars running high all the time. But given time with lifestyle change, I have seen people make dramatic shifts in as little as 1 to 3 months -Your medications can help keep your sugars in check, but really the lifestyle part of it is what is far more important -Start to work on scaling back the simple/starchy carbs as quickly as you can, and then as life allows, start a plan about how you can do it more easily with a busy life (such as making a bunch of meals at once and keeping some in the freezer for later, etc.) -Exercise is a huge part of this 2like we discussed, given how busy life is right now, it would be reasonable to work on taking her medicines regularly and changing her eating habits first, and then adding in exercise over the next few months. However, remember what we talked about20 to 30 minutes of light cardiovascular exercise makes your muscles more sensitive to insulinalmost like a dose of metformin. Unlike that dose of Metformin, which wears off, regular exercise more days than not will start to fundamentally change your muscle metabolism making them less insulin resistant. Even though there is a little bit of "metabolic magic" at that 20 to 30 minutes of cardio, remember what we talked aboutdoing something is better than nothing, and more is better than last. Even starting with something as simple as walking around the hotel a few times before you hit the road for work, if you do it more days than not, can add up way more than you would expect. Take care of yourself! Pending Studies at Discharge: No Stand-Alone Forms: My [facility] [employer]iest[employer], Work/School Release, Smoking Cessation Medications and DC Order Prescriptions: New (DME) OneTouch Verio test strips Strip See Rx Instructions .Route Qty: 100 RF: 2 (DME) lancets [OneTouch Delica Lancets] 33 gauge misc See Rx Instructions .Route Qty: 100 RF: 2 (DME) pen needle, diabetic 32 gauge x 5/32" needle See Rx Instructions .Route Qty: 100 RF: 2 Continued atorvastatin 40 mg tablet 40 mg PO HS Qty: 30 RF: 0 omega-3 fatty acids 1,000 mg Capsule 1,000 mg PO TID Qty: 90 RF: 0 metformin 1,000 mg tablet 1,000 mg PO BID Qty: 60 RF: 0 lisinopril 10 mg tablet 10 mg PO DAILY Qty: 30 RF: 0 cholecalciferol (vitamin D3) 1,000 unit capsule 1,000 units PO DAILY Qty: 30 RF: 0 fenofibrate nanocrystallized 145 mg tablet 145 mg PO HS Qty: 30 RF: 0 Lantus Solostar U-100 Insulin 100 unit/mL (3 mL) insulin pen 15 units SQ BID Qty: 3 RF: 0 cyanocobalamin (vitamin B-12) 1,000 mcg capsule 1,000 mcg PO DAILY Qty: 30 RF: 0 Discontinued (DME) lancets [OneTouch Delica Lancets] 33 gauge misc See Dose Instructions .ROUTE .MEDSUPPLY Qty: 100 RF: 0 (DME) OneTouch Verio test strips strip See Dose Instructions .ROUTE .MEDSUPPLY Qty: 10 RF: 0 Discharge Orders: Discharge Order (Routine); Ordered 09/15/21 Ordered By: Armando Bravo Admission Data Admit Date/Time: 09/10/21 18:02 Attending Provider: Armando Bravo Admit Provider: Arden Crowley Primary Care Provider: PCP,NO Other Providers: Arden Crowley Other Interventions: Discharge Summary Assessment (RN) Last Done: 09/15/21 12:02 Coding Level of Care Code D/C DAY MANAGEMENT >30 MINS Diagnoses Pancreatitis K85.80 Chronicity: acute Pancreatitis type: other Acute pancreatitis complication: no infection or necrosis Asymptomatic bacteriuria R82.71 Hypertriglyceridemia E78.1 Uncontrolled type 2 diabetes mellitus E11.65 Glycemic state: with hyperglycemia Hyponatremia E87.1 HTN (hypertension) I10 Hypertension type: unspecified
== END 2021-09-15 14:40 | disposition home or self-care (01) | DRG 439 ==
LOC: ED 12:48 → SUATTDRO 18:02 → EDINP 18:02 → 2S 20:48